=== PATIENT | male | born 1960 | race Caucasian/White ===

== ENCOUNTER 2018-07-19 07:12 | Day surgery (SDC) | payer BC, SELFPAY ==
--- NOTE | 2018-07-17 10:05 | NUR.NOTE ---
Nursing Note: 07/16/18 1033 - left msg regarding 07/19/18 Everly. 07/17/18 1004 - left msg regarding 07/19/18 Everly.
--- NOTE | 2018-07-18 15:36 | NUR.NOTE ---
07/18/18 1430 Spoke with Missael Florez CRNA in regards to medication, Nuedexta. Asked if pt should take medication or not prior to colonoscopy. Missael spoke with Torres De Los Santos CRNA and they both felt that it would be okay for pt to take medication. During telephone visit pt was instructed to take his morning dose of carbidopa/levodop and nuedexta. Nursing Note:
[2018-07-19 07:38] VITALS: BP 125/77; PULSE 86; RESP 16; TEMP 35.6; O2SAT 98
[2018-07-19] MEDS: Lactated Ringers 1,000 ML 80 ML IV (07:54)
--- NOTE | 2018-07-19 08:29 | BOWEL_PTH ---
PATIENT: Willie Farris LOC: [facility] U#:[id number] AGE/SX: 57/M ROOM: RE07/19/[address]: Carol Estes : 1960 BED: DIS: 07/19/2018 SPEC #: [id number] RECD: 07/19/18 12:37 STATUS: EBENEZER REQ #: [id number] NIKKI: 07/19/18 08:[address]: Carol Estes DEPT: Surgical Specimen RECD BY: [place] Barragan ENTERED: 07/19/18 12:38 SP TYPE: Bowel OTHR DR: Drew Gipson DO Tissues: 1 - BIOPSY BOWEL 2 - BIOPSY BOWEL Procedures: GROSS AND MICRO LEVEL 4 Comments: [id number]
--- NOTE | 2018-07-19 08:43 | W.COLOREPORT ---
Date of service: 07/19/18 Time of Service: 08:44 Colonoscopy Report Date of procedure: 07/19/18 Pre-op diagnosis general: CRC screen Post-op diagnosis procedure note: other Procedure: CE Surgeon: Carol Estes Anesthesia proc note operative: GETA Estimated blood loss (mL): 2 Pathology: other Complications: None Disposition: same day Indications: CRC screen Prep: Miralax Retraction Time: 12 mins Findings: see note Procedure Description: After informed consent was obtained the patient was taken to the procedure room and placed in a left decubitous position. Monitors were applied and a time out was done. The patients name, date of , procedure, allergies to medications and metal in their body was reviewed. The patient was then sedated. Once sedated and comfortable a rectal exam was done. External exam was normal. Internal exam revealed a normal sphincter tone and no palpable masses. The prostate nl. The scope was then introduced and retrofelexed. one small and ext hemorrhoid noted- grade I. The scope was then advanced to the cecum. difficulty. The TI and appendices orifice were identified. The prep was good. The scope was then slowly retracted over 12 minutes back into the rectum. Polyps were removed at: 50cm with mult bites of cold biter and a small one in cecum. all specimen retrieved and no bleeding noted. The scope was removed and the patient was woken up and taken back to Same day surgery in stable condition. The patient tolerated the procedure well and there were no immediate complications. Follow up: The patient should follow up in 3-5 years unless they develop changes in bowel habits or other new gastrointestinal complaints.
--- NOTE | 2018-07-19 08:48 | W.PM.DSUDISC ---
Discharge Plan Disposition Patient Disposition: HOME Condition: Good Discharge Details Reason For Visit: CRC screen Attending Provider: Carol Estes Primary Care Provider: Drew Gipson Home Meds and New Rx's Prescriptions: Continued ccpdjcsau-xvorqmoa-gxidyxinzn 50-200-200 mg tablet 1 tab PO HS RF: 0 Symbicort 80-4.5 mcg/actuation HFA aerosol inhaler 2 puff IH BID PRNRF: 0 multivitamin tablet 1 tab PO DAILY RF: 0 cetirizine [Allergy Relief (cetirizine)] 10 mg tablet 5 mg PO DAILY PRNRF: 0 vitamin E mixed 400 unit capsule 400 unit PO DAILY RF: 0 carbidopa-levodopa 25-100 mg tablet 2 tab PO TID RF: 0 Nuedexta 20-10 mg capsule 1 cap PO Q12H RF: 0 albuterol sulfate 90 mcg/actuation HFA aerosol inhaler 2 puff IH Q4H PRN (Reason: asthma) Qty: 8.5 RF: 8 lansoprazole 30 mg capsule,delayed release(DR/EC) 30 mg PO .every other day Qty: 90 RF: 3 Discontinued bisacodyl [Dulcolax (bisacodyl)] 5 mg tablet,delayed release (DR/EC) 5 mg PO ONCE Qty: 4 RF: 0 polyethylene glycol 3350 17 gram/dose powder 238 g PO ONCE Qty: 238 RF: 0 Discharge Instructions Additional Instructions: Findings: x2 polyps removed Follow up: repeat in 3-5 yrs path pd. Will send a letter in 2-3 wks as to path report and when to repeat CE. Please call if you develop: fevers >101.5 Nausea or Vomiting Abdominal pain that is not transient DAY SURGERY UNIT POST COLONOSCOPY INSTRUCTIONS 1. Because there will be medication in your system for the next 24 hours, you may feel a little sleepy. Your coordination will be affected. Therefore: a. Do not drive or operate dangerous equipment for 24 hours. b. Do not drink alcohol beverages for 24 hours (not even beer). c. Plan to go home and rest for the day. 2. Generally there are no restrictions on your activity after a day or so has gone by, but you may feel a bit fatigued for a few days. 3 After you arrive home you may have a light meal and return to a normal diet as you can tolerate it without feeling sick to your stomach. 4. After surgery, you may feel pain or discomfort. This should be only transient, but if it persists please contact your doctor. 5. If there are any questions regarding the findings of your procedure, please feel free to contact your doctor. 6. If you are unable to contact your doctor with a problem, contact the hospital at [phone]. 7. Continue all your regular medications unless directed otherwise. I understand the above instructions and have no questions. Signature of Patient or Responsible Adult Escort Date/Time Name of Responsible Adult Escort Signature of Nurse Date/Time Activity:: no lifting over 10# or strenuous acitivty x24hrs. no asa/nsaids for 10 days. tylenol is fine Diet:: sm. lt. meal for 24 hrs. push fluids DS: Diagnosis Discharge Diagnosis (1) Colon polyps: Status: Acute
[2018-07-19 09:15] VITALS: BP 117/80; PULSE 71; RESP 16; TEMP 36.4; O2SAT 97
== END 2018-07-19 09:40 | disposition home or self-care (01) ==
PROVIDERS: PCP Emergency Medicine; Visit Provider Surgery
PROC: 0DJD8ZZ Inspection of Lower Intestinal Tract, Via Natural or Artificial Opening Endoscopic (ICD-10-PCS; CPT 45378; principal; 2018-07-19 08:30)
DX: Z12.11 Encounter for screening for malignant neoplasm of colon (principal); D12.0 Benign neoplasm of cecum; D12.4 Benign neoplasm of descending colon; K21.9 Gastro-esophageal reflux disease without esophagitis
CPT/HCPCS: 45380; 88305

== ENCOUNTER 2018-08-15 09:44 | Outpatient (CLI) | payer BC, SELFPAY ==
--- NOTE | 2018-08-15 09:21 | DI.RAD_ITS ---
SYMPTOM/DIAGNOSIS: RT SHOULDER PAIN RIGHT SHOULDER: Two views were obtained. There is anterior and inferior spurring of the glenoid and the cartilaginous joint space of the glenohumeral joint appears fairly well maintained. Moderate hypertrophic spurring of the AC joint noted. No other significant bony or soft tissue abnormality is seen. CONCLUSION: Degenerative changes as described above.
== END 2018-08-15 10:04 ==
PROVIDERS: PCP Emergency Medicine; Visit Provider Physician Assistant
DX: M25.511 Pain in right shoulder (principal); M19.011 Primary osteoarthritis, right shoulder
CPT/HCPCS: 73030

== ENCOUNTER 2019-03-20 19:27 | Emergency (ER) | payer BC, SELFPAY ==
[2019-03-20 19:30] VITALS: BP 137/89; PULSE 76; RESP 18; TEMP 36.4; O2SAT 98
--- NOTE | 2019-03-20 19:52 | ED.GENADUL_ITS ---
Discharge Plan Disposition Patient Disposition: HOME Discharge Details Chief Complaint: Orthopedic Clinical Impression: Right shoulder strain Primary Care Provider: Drew Gipson ED Provider: Nick Alcocer Home Meds and New Rx's Prescriptions: No Action vntlhcxdt-gcxbehog-yocasycdbq 50-200-200 mg tablet 1 tab PO HS RF: 0 multivitamin tablet 1 tab PO DAILY RF: 0 cetirizine [Allergy Relief (cetirizine)] 10 mg tablet 5 mg PO DAILY PRNRF: 0 vitamin E mixed 400 unit capsule 400 unit PO DAILY RF: 0 carbidopa-levodopa 25-100 mg tablet 2 tab PO QID RF: 0 Nuedexta 20-10 mg capsule 1 cap PO Q12H RF: 0 albuterol sulfate 90 mcg/actuation HFA aerosol inhaler 2 puff IH Q4H PRN (Reason: asthma) Qty: 8.5 RF: 8 lansoprazole 30 mg capsule,delayed release(DR/EC) 30 mg PO .every other day Qty: 90 RF: 3 Discharge Instructions Instructions: Rotator Cuff Injury (ED) Additional Instructions: Your x-rays were negative for an acute fracture of your shoulder and/or elbow. It is possible that you may have injured her rotator cuff. Plan is to place you in a simple sling for the next 24 to 48 hours. Should your pain significantly increase or you develop numbness and tingling in the hand despite sling removal he should return to the emergency department immediately. Take Tylenol 500 m tabs every 8 hours for pain. You may also take ibuprofen 200 m tabs every 8 hours for pain. Stand Alone Forms: Work Release Referrals: Archie Hernández MD [ [facility] STAFF PHYSICIAN] - 3 days Medical Decision Making This is a nontoxic-appearing 58-year-old male who presents to the emergency department status post fall injuring his right shoulder. Physical exam is significant for posterior lateral shoulder tenderness. Neurovascularly intact. Vital signs stable. X-rays negative for acute fracture of both the shoulder and the elbow. ?RTC pathology. Plan is to place him in a simple sling for the next 24 to 48 hours and have him follow-up with Ortho should his symptoms persist. Tylenol and Motrin indicated for pain. HPI General Date/Time Provider Initiated Documentation: 03/20/19 19:40 . HPI Narrative: Jenna rodriguez is a 58-year-old male with a significant history for Parkinson's disease and bilateral shoulder arthroscopy who presents to the emergency department status post fall in which she slipped on the ice at home. He axially loaded his right shoulder with his elbow sustaining the majority of the trauma. He complains of severe pain in the posterior lateral aspect of his right humerus. He denies any numbness or tingling of the hand. He does also report some tenderness of the elbow. No head or neck trauma. No trouble breathing or chest pain. Related Data Home Medications Medication Instructions Recorded Confirmed carbidopa 50 mg-levodopa 200 1 tab PO HS tab 12/12/17 03/20/19 mg-entacapone 200 mg tablet cetirizine 10 mg tablet 5 mg PO DAILY PRN 12/12/17 03/20/19 multivitamin 1 tab PO DAILY 12/12/17 03/20/19 vitamin E mixed 400 unit capsule 400 unit PO DAILY cap 12/12/17 03/20/19 lansoprazole 30 mg capsule,delayed 30 mg PO .every other day #90 cap 05/29/18 03/20/19 release albuterol sulfate 90 mcg/actuation 2 puff IH Q4H PRN #8.5 gm 06/12/18 03/20/19 aerosol inhaler carbidopa 25 mg-levodopa 100 mg 2 tab PO QID tab 06/12/18 03/20/19 tablet dextromethorphan 20 mg-quinidine 1 cap PO Q12H 06/12/18 03/20/19 10 mg capsule Previous Rx's Medication Instructions Recorded lansoprazole 30 mg capsule,delayed 30 mg PO .every other day #90 cap 05/29/18 release albuterol sulfate 90 mcg/actuation 2 puff IH Q4H PRN #8.5 gm 06/12/18 aerosol inhaler Allergies Allergy/AdvReac Type Severity Reaction Status Date / Time bee pollen Allergy Severe ANAPHYLAXIS Verified 03/20/19 19:37 General Stated Complaint: Orthopedic RICHELLE: 3 Review of Systems Constitutional Constitutional: Denies headache(s) ENT Ears, Nose, Mouth, and Throat: Denies headache(s) and Denies neck pain Cardiovascular Cardiovascular: Denies syncope, Denies claudication, Denies palpitations and Denies dyspnea Respiratory Respiratory: Denies dyspnea Gastrointestinal Gastrointestinal: Denies nausea and Denies vomiting Musculoskeletal Musculoskeletal: Denies back pain, Denies neck pain, Denies numbness and Denies tingling Integumentary/Breasts Skin/Breast: Denies wounds Neurologic Neurologic: Denies syncope, Denies headache(s), Denies numbness and Denies tingling Endocrine Endocrine: Denies palpitations Hematologic/Lymphatic Hematologic/Lymphatic: Denies easy bleeding and Denies easy bruising [facility] Medical History Adenomatous colon polyp (Resolved) 07/19/18, Dr Estes, [facility], tubular and sessile serrated adenoma, repeat 3 years. Asthma (Chronic) Fx ankle (Acute) 1984 orif done GERD (gastroesophageal reflux disease) (Chronic) Hiatal hernia (Chronic) History of Parkinson's disease (Acute) Microhematuria (Acute) Right tennis elbow (Acute) Rupture of biceps tendon (Acute) 2008 repair done Surgical History Arthroscopy, Shoulder 1992; left also right EGD - MAC 2004 Repair of umbilical hernia 1993 Family History Mother No problems noted. Father Personal history of malignant neoplasm Social History Smoking/Tobacco Use Status: Never Alcohol Intake: current Alcohol Intake frequency: a few times a week Alcohol type: beer Drug use: Never Substance use type: does not use Do you feel safe at home: Yes Do you feel safe in your relationship?: Yes Exam Const General: cooperative, healthy appearing and in distress Orientation: alert, awake and oriented x3 HENMT Head: normal to inspection, no palpable skull fracture, normocephalic and a traumatic Eyes General: appearance normal, both eyes and all related structures Pupils: PERRL EOM: EOM intact bilaterally Neck Neck: normal visual inspection, full ROM, no anterior neck swelling, no midline deformity and nontender Chest Chest: normal inspection of the chest and normal palpation of entire chest wall Resp Effort & Inspection: normal respiratory effort and able to speak in complete sentences Auscultation: clear to auscultation bilaterally Cardio Rate: regular rate Rhythm: regular rhythm Pulses: radial pulses present and normal peripheral pulses GI Inspection: normal to inspection Palpation: soft Back/Spine/Pelvis Cervical Spine: No cervical muscular tenderness and No cervical spinal tenderness Skin Trauma: no lacerations or abrasions Neuro Motor: muscle tone normal throughout Sensory Exam: no sensory deficits noted Extrem Left upper extremity: shoulder/upper arm Details: tenderness Location: of the proximal humerus, axillary nerve sensory function normal and abnormal ROM Details: held in an abnormal fashion Details: in ADduction and elbow/forearm Details: normal to inspection and tenderness Location: of the distal humerus and of the proximal forearm Course Vital Signs Vital signs: Vital Signs Temperature 36.4 C L 03/20/19 19:30 Pulse 76 03/20/19 19:30 Respiratory Rate 18 03/20/19 19:30 Blood Pressure 137/89 03/20/19 19:30 Pulse Oximetry 98 03/20/19 19:30 Temperature 36.4 C L 03/20/19 19:30 Temperature Source Skin 03/20/19 19:30 Pulse 76 03/20/19 19:30 Respiratory Rate 18 03/20/19 19:30 Blood Pressure 137/89 03/20/19 19:30 Pulse Oximetry 98 03/20/19 19:30 Oxygen Delivery Method Room Air 03/20/19 19:30 Oxygen Flow Rate 0 03/20/19 19:30 Pain Level 10 03/20/19 19:30 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
[2019-03-20] MEDS: Ondansetron 4 MG/2 ML VIAL (19:53)
[2019-03-20] MEDS: HYDROmorphone 2 MG/ML VIAL 1 MG IVP (19:54)
--- NOTE | 2019-03-20 20:46 | DI.RAD_ITS ---
EXAM: XR SHOULDER RT COMPLETE 2+V INDICATION: severe posterior shoulder pain s/p fall. COMPARISON: XR shoulder RT complete 2+V from 08/15/2018 TECHNIQUE: 2D digital imaging was performed. FINDINGS: No acute fracture or dislocation is present. Moderate degenerative changes are seen at the acromiocl avicular joint. On the frontal view there is a tiny density superior to the head of the humerus. Th is likely reflects calcific tendinitis. It appears well circumscribed. The soft tissues are unremar kable. IMPRESSION: No acute fracture or dislocation.
--- NOTE | 2019-03-20 20:46 | DI.RAD_ITS ---
EXAM: XR ELBOW RT COMPLETE INDICATION: elbow pain s/p blunt trauma. COMPARISON: No exams were available for comparison TECHNIQUE: 2D digital imaging was performed. FINDINGS: On the lateral view there is a density adjacent to the olecranon. There is a lucency at the base of this density. This may represent a fracture through an osteophyte. This is age indeterminate. Tiny well corticated osseous densities are seen adjacent to the lateral epicondyle. These appear old. T he bones are normally mineralized. The soft tissues are unremarkable. IMPRESSION: Lucency through density adjacent to the olecranon as seen on the lateral view. This may represent a fracture through an osteophyte. This is age indeterminate. Please correlate with the patient's site of pain.
--- NOTE | 2019-03-20 20:57 | DI.VRAD_ITS ---
PROCEDURE INFORMATION: Exam: XR Right Elbow Exam date and time: 03/20/2019 8:43 PM Age: 58 years old Clinical history: Injury or trauma; Fall; Initial encounter; Blunt trauma (contusions or hematomas; Elbow; Injury date: 03/20/2019; Injury details: Fell in parking lot on ice, unable to abduct right arm TECHNIQUE: Imaging protocol: XR Right elbow. Views: 3 or more views. COMPARISON: No relevant prior studies available. FINDINGS: Bones/joints: Ossified fragment along the posterior aspect the olecranon. Joint spaces are maintained. No joint effusion. Soft tissues: Normal. IMPRESSION: 1. Ossified fragment along the posterior aspect of the olecranon may represent an age indeterminate fracture through an osteophyte. Recommend clinical correlation. 2. Joint spaces are maintained. Dictated and Authenticated by: Mauro Gonzalez MD. Ordering:MARLO Romero MD
--- NOTE | 2019-03-20 20:58 | DI.VRAD_ITS ---
PROCEDURE INFORMATION: Exam: XR Right Shoulder Exam date and time: 03/20/2019 8:44 PM Age: 58 years old Clinical history: Injury or trauma; Fall; Initial encounter; Blunt trauma (contusions or hematomas; Shoulder; Injury date: 03/20/2019; Injury details: Fell in parking lot on ice, unable to abduct right arm TECHNIQUE: Imaging protocol: XR Right shoulder. Views: 2 or more views. COMPARISON: CR XR shoulder RT complete 2+V 08/15/2018 9:36 AM FINDINGS: Bones/joints: No acute fracture. Joint spaces are maintained. Moderate degenerative changes of the acromioclavicular joint. Small ossification superior to the humeral head likely secondary to enthesopathy. Soft tissues: Normal. Partially visualized right lung is unremarkable. IMPRESSION: No acute findings. Dictated and Authenticated by: Mauro Gonzalez MD. Ordering:MARLO Romero MD
[2019-03-20] MEDS: HYDROmorphone 2 MG/ML VIAL 0.5 MG IVP (21:04)
[2019-03-20 21:09] VITALS: BP 119/62; PULSE 74; RESP 18; TEMP 36.8; O2SAT 99
== END 2019-03-20 21:20 | disposition home or self-care (01) ==
PROVIDERS: Emergency Provider Physician Assistant; PCP Emergency Medicine
DX: S46.911A Strain of unspecified muscle, fascia and tendon at shoulder and upper arm level, right arm, initial encounter (principal); W00.0XXA Fall on same level due to ice and snow, initial encounter; G20 Parkinson's disease
CPT/HCPCS: 96374; 96375; 96376; 99284; 73030; 73080; 99283; J2405; L3650

== ENCOUNTER 2019-04-04 00:27 | Outpatient (CLI) | payer BC, SELFPAY ==
[2019-04-04 10:09] LABS: Calculated LDL 122 mg/dL; Cholesterol 194 mg/dL (<200); HDL Cholesterol 55 mg/dL (40-60); Triglyceride 88 mg/dL (<150)
== END 2019-04-04 00:47 ==
PROVIDERS: PCP Emergency Medicine; Visit Provider Emergency Medicine
DX: Z00.00 Encounter for general adult medical examination without abnormal findings (principal); Z13.220 Encounter for screening for lipoid disorders
CPT/HCPCS: 36415; 80061

== ENCOUNTER 2019-04-04 03:15 | Outpatient (CLI) | payer BC, SELFPAY ==
--- NOTE | 2019-04-04 08:40 | DI.MRI_ITS ---
EXAM: MR UPPER JOINT RT WO CLINICAL HISTORY: R shoulder injury S46.011A STRAIN OF MUSCLE. TECHNIQUE: Multiplanar multisequence MRI was performed. COMPARISON: XR SHOULDER RT COMPLETE 2+V from 03/20/2019 FINDINGS: MR examination shoulder was performed according to the usual protocol. There is a moderate shoulder joint effusion. There are very prominent hypertrophic changes of the ac romioclavicular joint with impingement on the supraspinatus mechanism. There are mild cystic degener ative changes of the humeral head at the greater tuberosity. There is effacement of the glenoid labr um. Biceps tendon sheath contains fluid. Biceps tendon is normally positioned and shows essentially normal signal. There is a full-thickness supraspinatus tendon tear with retraction up to 25 millimeters. Subscapula ris tendon shows partial thickness tear and marked tendinosis with tendon thickening and abnormal sig nal and there may be a full-thickness non retracted attachment tear of the subscapularis. Infraspina tus also shows partial-thickness tearing on the undersurface with thickening and question of Tresa att achment full-thickness tear, non retracted. IMPRESSION: Massive rotator cuff tear involving supraspinatus tendon and adjacent portions of infraspinatus and s ubscapularis with retraction by supraspinatus component by about 2.5 cm. On sagittal imaging the wid th of the tear measures up to about 4 cm. Degenerative changes noted as described above. No significant fatty replacement of rotator cuff musculature.
== END 2019-04-04 03:35 ==
PROVIDERS: PCP Emergency Medicine; Visit Provider Orthopaedic Surgery
DX: M25.411 Effusion, right shoulder (principal); S46.011A Strain of muscle(s) and tendon(s) of the rotator cuff of right shoulder, initial encounter; M19.011 Primary osteoarthritis, right shoulder
CPT/HCPCS: 73221

== ENCOUNTER 2019-04-21 09:34 | Observation (INO) | payer BC, SELFPAY ==
--- NOTE | 2019-04-18 09:46 | DSU.FORM ---
04/18/19 0947 Spoke with Emily at [facility] to let them know that Willie will need an H&P on Sunday prior to surgery.
--- NOTE | 2019-04-18 14:57 | W.PREOPHP ---
Date of service: 04/21/19 Assessment and Plan Assessment and plan (1) Traumatic tear of right rotator cuff: Status: Acute Assessment and plan: Plan: Educated patient on surgery covering surgical technique, recovery process, benefits and risks including but not limited to risk of infection, blood clot, damage to soft tissue/blood vessels/nerves in detail. After discussion patient gives verbal understanding of risks and elects to proceed with scheduling surgery. Patient had opportunity to have questions answered to their satisfaction. They will contact office if issues arise. Patient will continue to be scheduled for right rotator cuff repair with Dr. Hernández. Qualifiers: Encounter type: initial encounter Rotator cuff tear extent: complete Qualified Code(s): S46.011A - Strain of muscle(s) and tendon(s) of the rotator cuff of right shoulder, initial encounter (2) Right rotator cuff tendonitis: Status: Chronic History of Present Illness Narrative: Mr. Farris is a 58-year-old right-hand dominant male who presents for right rotator cuff repair with Dr. Hernández. He was initially seen in the [facility] ER on 03/20/19 after a traumatic fall on the ice in his friend's driveway where he land directly on his flexed elbow causing him to have immediate right shoulder discomfort. After his shoulder and elbow x-rays were negative for acute bony abnormality he was referred to orthopedic clinic. Patient received a subacromial injection on 03/25/19 which provided minimal relief for ~1 day since that time he has continued to have significant right shoulder discomfort as well as restricted ROM. Due to his motion and history of trauma an MRI was ordered which revealed massive rotator cuff tear involving the supraspinatus tendon with retraction as well as adjacent portions of infraspinatus and subscapularis as per Dr. Montague's read. Patient had previously had chronic rotator cuff tendonitis and received subacromial injections with the last injection for his chronic symptoms on 08/15/18 which provided some relief. Due to the recent traumatic history, continued pain, restricted motion and positive MRI Dr. Hernández offered surgery and patient elected to proceed. Pertinent Surgical Information Patient does have history of Parkinson's disease. Reports history of asthma but denies any recent issues or needing his inhaler. Denies past medical history of: Hypertension, stroke, cardiac issues, angina, COPD, sleep apnea, renal issues, liver issues, hepatitis, gastrointestinal ulcers, hyperlipidemia, bleeding disorders, seizures, migraines, diabetes, autoimmune disorders, thyroid issues Denies prior complications from surgery. He does report taking a long time to come out of anesthesia in the past. Denies any true issues with anesthesia. Review of Systems Cardiovascular Cardiovascular: Denies chest pain, Denies rapid heart rate, Denies irregular heart rhythm, Denies dyspnea, Denies dyspnea on exertion and Denies slow heart rate Respiratory Respiratory: Reports cough (dery cough for several months; non-productive), Denies dyspnea, Denies dyspnea on exertion and Denies wheezing Gastrointestinal Gastrointestinal: Denies abdominal pain, Denies melena, Denies hematochezia, Denies constipation, Denies diarrhea, Denies nausea and Denies vomiting Musculoskeletal Musculoskeletal: Reports as per HPI, Denies numbness and Denies tingling Neurologic Neurologic: Denies numbness and Denies tingling Allergic/Immunologic Allergic/Immunologic: Denies wheezing [facility] Medical History Adenomatous colon polyp (Resolved) 07/19/18, Dr Estes, [facility], tubular and sessile serrated adenoma, repeat 3 years. Asthma (Chronic) Family history of cardiovascular disease (Inactive) GERD (gastroesophageal reflux disease) (Chronic) Hiatal hernia (Chronic) History of Parkinson's disease (Acute) Microhematuria (Acute) Right tennis elbow (Acute) Surgical History (Updated 04/21/19 @ 07:12 by Carol Rivera) Arthroscopy, Shoulder 1992; left also right EGD - MAC 2004 Fx ankle (Acute) 1984 orif done History of colonoscopy (Chronic) Repair of umbilical hernia 1993 Rupture of biceps tendon (Acute) 2007 repair done Social History Smoking/Tobacco Use Status: Never Alcohol Intake: current Alcohol Intake frequency: a few times a week Alcohol type: beer Drug use: Never Substance use type: does not use Do you feel safe at home: Yes Do you feel safe in your relationship?: Yes Meds Home Medications and Allergies Home Medications Medication Instructions Recorded Confirmed Type carbidopa 50 mg-levodopa 200 1 tab PO HS tab 12/12/17 04/21/19 History mg-entacapone 200 mg tablet cetirizine 10 mg tablet 5 mg PO DAILY PRN 12/12/17 04/21/19 History multivitamin 1 tab PO DAILY 12/12/17 04/21/19 History vitamin E mixed 400 unit capsule 400 unit PO DAILY cap 12/12/17 04/21/19 History lansoprazole 30 mg capsule,delayed 30 mg PO .every other day #90 cap 05/29/18 04/21/19 Rx release albuterol sulfate 90 mcg/actuation 2 puff IH Q4H PRN #8.5 gm 06/12/18 04/21/19 Rx aerosol inhaler carbidopa 25 mg-levodopa 100 mg 2 tab PO QID tab 06/12/18 04/21/19 History tablet dextromethorphan 20 mg-quinidine 1 cap PO Q12H 06/12/18 04/21/19 History 10 mg capsule Allergies Allergy/AdvReac Type Severity Reaction Status Date / Time bee pollen Allergy Severe ANAPHYLAXIS Verified 04/21/19 07:12 Exam Const General: cooperative and no acute distress HENMT Head: normal to inspection, normocephalic and atraumatic Ears: external ears normal General nose exam: external nose normal and no nasal discharge Face and sinus: face symmetric Mouth: oral mucosae normal, lip normal, tongue normal and moist mucous membranes Teeth and gingiva: dentures Eyes General: appearance normal, both eyes and all related structures Neck Neck: trachea midline Lymphatic: no lymphadenopathy noted Resp Effort & Inspection: normal respiratory effort and able to speak in complete sentences Auscultation: clear to auscultation bilaterally, no rales, no rhonchi and no wheezes Cardio Heart Sounds: S1 normal, S2 normal and no murmurs Pulses: radial pulses present bilaterally Skin General skin exam: no rashes or lesions noted
[2019-04-21] VITALS (13 sets, daily range): BP systolic 87–135; BP diastolic 54–81; PULSE 72–86; RESP 14–19; TEMP 36.2–37.4; O2SAT 92–96
[2019-04-21] MEDS: Lactated Ringers 1,000 ML 80 ML IV ×2 (06:49→12:41)
[2019-04-21] MEDS: Bupivacaine 0.5% Pres-Free 30 ML VIAL (07:26)
[2019-04-21] MEDS: Bupivacaine LIPOSOME/PF 133 MG/10 ML VIAL IJ (07:26)
[2019-04-21] MEDS: ceFAZolin 2 GM/50 ML BAG IVPB ×3 (07:40→19:42)
[2019-04-21] MEDS: Tranexamic Acid 1,000 MG/10 ML VIAL 1000 MG (09:21)
[2019-04-21] MEDS: Normal Saline 100 ML (09:21)
[2019-04-21] MEDS: Carbidopa 25/Levodopa 100 TAB PO ×3 (10:44→17:38)
[2019-04-21] MEDS: Normal Saline Flush 10 ML SYR IV (13:06)
--- NOTE | 2019-04-21 13:21 | NUR.NOTE ---
Nursing Note: Patient transferred to floor from PACU at approximately 1145. Patient arrives on stretcher. Reports tingling to right hand. Patient had general anesthesia and a right interscalene nerve block. Positive pedal and radial pulses. HR regular, lungs clear, hypoactive bowel sounds. VSS. See worklist. Cryo cuff to right shoulder. Patient reports feeling cold -blankets given. Alert and oriented x 3. Sling and bolster block in place. IV running on left hand.
[2019-04-21] MEDS: Ketorolac 30 MG/ML VIAL IVP ×2 (13:34→19:41)
[2019-04-21] MEDS: POTASSIUM CHLORIDE/0.9% NACL 1,000 ML 125 MEQ IV ×2 (13:40→22:10)
--- NOTE | 2019-04-21 15:28 | ROE_ITS ---
DATE OF PROCEDURE: April 21, 2019 PREOPERATIVE DIAGNOSIS: Torn rotator cuff, right. POSTOPERATIVE DIAGNOSIS: Same. PROCEDURE: Open repair of torn rotator cuff on the right. ANESTHESIA: General, Kendrick Romero CRNA SURGEON: Archie Hernández M.D. INSPECTOR STRUCTURAL BONDING: Purnima Flores INDICATIONS: This is a 58-year-old white male who had a slip and fall onto his right elbow several w eeks ago. He experienced severe right shoulder pain and dysfunction. Clinical examination was highl y suggestive of a large full-thickness rotator cuff tear. MRI scan was obtained, which confirmed a l arge full-thickness rotator cuff tear with retraction of the leading edge of the tear several centime ters. Repair of the rotator cuff tear was recommended as optimum treatment to alleviate his pain and restore useful function to the right upper extremity. The risks and complications of the procedure were explained to the patient in detail preoperatively. PROCEDURE: The patient was taken to the operating room on 04/21/2019. A scalene block was administer ed and then the patient was given a general anesthetic. He was placed in the carolina chair position a nd the right shoulder was prepped and draped free in the usual sterile fashion. An incision was made in line with previous scar from a distal clavicle resection and acromioplasty. The incision was extended to about 3 to 4 cm distal to the anterolateral corner of the acromion. The incision was carried down to the fascia. The deltoid muscle was split in line with its fibers at th e anterolateral corner of the acromion and then the anterior deltoid muscle was sharply reflected fro m the acromion. Sutures of #2 FiberWire from a previous deltoid reattachment were excised. A partia l acromioplasty was performed to improve visualization. The deltoid was reflected off the anterior a cromion to the clavicle. The patient had a full-thickness tear of the rotator cuff beginning at the rotator interval over the biceps tendon. The biceps tendon was inspected and was found to be surprisingly intact. Traction garcia tures were placed on the leading edge of the rotator cuff tear and the tear was mobilized using العلي elevators on both the bursal side and the articular side of the rotator cuff. The footprint was prep ared on the humeral head with a rongeur and a nasal rasp. The length of tear was fairly substantial and was probably 4 cm. The posterior cuff, however, was intact. There was a stump of tissue bridge ironworker helper d to the tuberosity, so the tear was intratendinous and not pulled off the attachment of the cuff. T hree 5.0 anchors were then placed from anterior to posterior; the first one being just posterior to t he biceps tendon and bicipital groove. The next two were evenly spaced to the very posterior lateral corner of the tear. The nonviable tissue from both tendon ends was sharply debrided. I converged t he split in the rotator interval with a few interrupted zxsjee-sp-agtba sutures of #1 Vicryl suture m aterial. The sutures from the three anchors were then placed, first with one suture in a horizontal mattress fashion and the second suture in a simple fashion over the horizontal mattress portion and l aterally one suture was placed through the stump of the tendon to be tied over top. I repeated this with the next two anchors as well. I tied the horizontal mattress suture first and then put the simp le suture overlying the horizontal mattress part. Excellent convergence of the tear edges was approx imated and the tendon was anatomically repaired. I then used a single VERSALOK anchor to bring two o f the sutures over where there was some additional tearing of the tendon. I also supplemented with a few interrupted snpbdd-bg-txyvu sutures of #1 Vicryl suture material for a watertight closure. The wound was irrigated with saline solution and then 1 gram of tranexamic acid in 100 cc's of saline was instilled into the wound and allowed to sit for sixty seconds. All obvious bleeders were cauter ized. The wound margins were infiltrated with 0.25% Marcaine with an epinephrine solution. Three dr ill holes were placed in the anterior acromion and then #2 FiberWire was passed through the full-thic kness of the anterior deltoid muscle and through the drill holes in a zofggg-ls-hldxw fashion; they w ere tied tightly, securing the anterior deltoid to the acromion. The lateral deltoid split was repai red with interrupted pylsbb-zk-zryyg sutures of #1 Vicryl suture material. The AC joint capsule was approximated with interrupted bhcpfy-wm-ietdc sutures of #1 Vicryl suture material. Then the superfi cial fascia over the acromion was sutured to the superficial fascia of the deltoid with a few interru pted #1 Vicryl sutures. The subcu was approximated with a few interrupted #2-0 Vicryl sutures in a r unning subcuticular closure, supplemented with #4-0 Vicryl. Supplemental Steri-Strips were used for skin closure. The wounds were dressed with Xeroform gauze, sterile gauze 4x4's, and an ABD pad, and taped with foam elastic tape. The right upper extremity was placed in an UltraSling abduction pillow orthosis. The patient tolerated the procedure well. Estimated blood loss 50 cc's. The patient was discharged to recovery in good condition. After discussion with the patient in the recovery room, I decided to admit him OBV outpatient for fidel n control overnight.
[2019-04-21] MEDS: Docusate Sodium 100 MG CAP PO (19:42)
[2019-04-21] MEDS: oxyCODONE-CR 10 MG TABCR PO (23:27)
[2019-04-22] MEDS: Ketorolac 30 MG/ML VIAL IVP ×3 (01:29→13:31)
[2019-04-22] MEDS: ceFAZolin 2 GM/50 ML BAG IVPB ×2 (01:30→08:00)
[2019-04-22 04:32] VITALS: BP 108/62; PULSE 71; RESP 16; TEMP 37.1; O2SAT 93
[2019-04-22] MEDS: Carbidopa 25/Levodopa 100 TAB PO ×3 (05:04→13:31)
[2019-04-22] MEDS: HYDROcodone 5/Acetaminophen 325 TAB PO ×3 (05:09→15:37)
[2019-04-22] MEDS: POTASSIUM CHLORIDE/0.9% NACL 1,000 ML 125 MEQ IV (06:22)
[2019-04-22 07:40] VITALS: BP 126/78; PULSE 71; RESP 20; TEMP 36.8; O2SAT 96
[2019-04-22] MEDS: Normal Saline Flush 10 ML SYR IV (08:00)
[2019-04-22] MEDS: Multivitamin TAB 1 TAB PO (08:00)
[2019-04-22] MEDS: Docusate Sodium 100 MG CAP PO (08:01)
[2019-04-22] MEDS: Pantoprazole 40 MG TABCR PO (08:01)
--- NOTE | 2019-04-22 11:15 | PDOC.CMIN ---
- If Service Date Differs Date of service: 04/22/19 Time of Service: 11:15 Care Management Initial Assess REASON FOR HOSPITALIZATION:: Postop rotator cuff repair. PAST MEDICAL HISTORY/PAST SURGICAL HISTORY:: Medical History: Adenomatous colon polyp (Resolved) - 07/19/18, Dr Estes, [facility], tubular and sessile serrated adenoma, repeat 3 years, Asthma (Chronic), Family history of cardiovascular disease (Inactive), GERD (gastroesophageal reflux disease) (Chronic), Hiatal hernia (Chronic),. History of Parkinson's disease (Acute), Microhematuria (Acute), and Right tennis elbow (Acute). Surgical History: Arthroscopy, Shoulder - 1992; left also right, EGD - MAC 2004, Fx ankle (Acute) - 1984 orif done, History of colonoscopy (Chronic),. Repair of umbilical hernia - 1993, and Rupture of biceps tendon (Acute) - 2007 repair done. PREVIOUS FUNCTIONAL STATUS/SOCIAL/FAMILY SUPPORTS:: Willie lives in [place] with Araceli. The couple has two children together. 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 In his down time, Wlilie enjoys showshoeing, hunting, and visiting extended family. Willie drives and is independent with his ADLs at baseline. CURRENT FUNCTIONAL STATUS:: Willie is sitting in a chair when CM comes to meet with him. He is pleasant and easily engages in conversation. He shares that approximately two years ago, he was diagnosed with Parkinsons and is being followed by [facility]. He also shares that both his and daughter work for [employer]. He hopes to be returning home today. CM will continue to follow. ADVANCE DIRECTIVES:: None on file; a form is given to patient to complete at a later time, at his request. Has patient been provided with information about the portal?: Yes Did the patient sign up for the portal?: Yes CODE STATUS:: Full Code INSURANCE COVERAGE / FINANCIAL ISSUES:: BS CURRENT HOME/COMMUNITY SERVICES/EQUIPMENT:: Willie has no home or community services and does not have any medical equipment. PRIMARY CARE PHYSICIAN:: Drew Gipson MD ([facility]) POTENTIAL DISCHARGE NEEDS:: Follow-up appointment with primary care physician and with Dr. Hernández, surgeon. PATIENT/FAMILY EDUCATION NEEDS:: Discharge plan, limitations, follow-up plan of care, including Ask Me Three and self-management. ANTICIPATED BARRIERS TO DISCHARGE:: No anticipated barriers at this time. TRANSPORTATION:: Via private vehicle by family member. PLAN:: Willie will be discharged home when medically cleared by provider. Anticipate no new services at time of discharge. Willie's will transport him home via private vehicle when ready. CM will continue to follow.
[2019-04-22 11:40] VITALS: BP 124/74; PULSE 76; RESP 18; TEMP 36.7; O2SAT 94
[2019-04-22] MEDS: oxyCODONE-CR 10 MG TABCR PO (12:18)
--- NOTE | 2019-04-22 12:34 | W.NUTCONSULT ---
Date of service: 04/22/19 Time of Service: 12:35 Nutritional Consult ASSESSMENT: 58 year old male admitted for right rotator cuff surgery. PMH: parkinson dx, GERD. Following regular diet with excellent intake. BMI indicates overweight status. Not considered at nutritional risk at this time. MONITORING AND EVALUATION: po intake and weight trends Time Spent in Nutritional Counseling and Treatment: 0 time spent face to face
--- NOTE | 2019-04-22 14:01 | W.PM.DS.N ---
Date of service: 04/22/19 Time of Service: 14:01 DS: Diagnosis Discharge Diagnosis (1) Traumatic tear of right rotator cuff: Status: Acute (2) Right rotator cuff tendonitis: Status: Chronic Discharge Plan Disposition Patient Disposition: HOME Condition: Good Discharge Details Reason For Visit: POSTOP R ROTATOR CUFF REPAIR Admit Date/Time: 04/21/19 09:34 Admit Provider: Archie Hernández Attending Provider: Archie Hernández Primary Care Provider: Drew Gipson Hospital Course Hospital Course: Patient was taken to the operating room on day of admission on 04/21/2019. He was admitted OBV outpatient for pain control following the surgery. He did experience significant increase in pain in his right shoulder after his block wore off. His pain came back under control by the time I saw him at 1 PM. He felt his pain was controlled with the oxycodone pills. He felt the pain was manageable for him to go home. He was afebrile vital signs are stable. Neurovascular examination is right hand is completely normal. I thought he had met the discharge criteria and discharge him home. Home Meds and New Rx's Prescriptions: New hydrocodone-acetaminophen 5-325 mg tablet 1 tab PO Q6H PRN (Reason: pain) Qty: 30 RF: 0 ibuprofen 800 mg tablet 800 mg PO TID Qty: 60 RF: 0 Continued akttqobrn-dsyqtoru-ockdnlltkw 50-200-200 mg tablet 1 tab PO HS RF: 0 multivitamin tablet 1 tab PO DAILY RF: 0 cetirizine [Allergy Relief (cetirizine)] 10 mg tablet 5 mg PO DAILY PRNRF: 0 vitamin E mixed 400 unit capsule 400 unit PO DAILY RF: 0 carbidopa-levodopa 25-100 mg tablet 2 tab PO QID RF: 0 Nuedexta 20-10 mg capsule 1 cap PO Q12H RF: 0 albuterol sulfate 90 mcg/actuation HFA aerosol inhaler 2 puff IH Q4H PRN (Reason: asthma) Qty: 8.5 RF: 8 lansoprazole 30 mg capsule,delayed release(DR/EC) 30 mg PO .every other day Qty: 90 RF: 3 Discharge Instructions Additional Instructions: Wear sling/pillow 30/10. May remove to shower and dress. When out of sling, keep R arm at side--don't reach away from body with R arm. When sitting in chair can take forearm out of sling and bend and straighten R elbow over side of pillow. May remove dressings, shower, and get incision wet in 48 hours. Leave incision uncovered when it is dry and sealed. Apply cryocuff to R shoulder 4 times/day for 1 hour each time. Sleep in a recliner or propped up on pillows in bed. Take ibuprofen 3 times/day as prescribed to decrease inflammation and pain. Take hydrocodone for breakthru pain, if needed. Follow up with in 2 weeks. Referrals: Archie Hernández MD [ [facility] STAFF PHYSICIAN] - (f/u in 2 weeks.) Activity:: Activity as Tolerated Equipment/Supplies:: sling/pillow Diet:: As Tolerated Discharge Orders Discharge Orders: Discharge Order (Routine); Ordered 04/22/19 Ordered By: Archie Hernández DS: Summary Status at Discharge Functional status at discharge: independent ambulation Overall status at discharge: patient is progressing back to baseline Mental Status: mental status grossly normal Speech and Movement: speech and movement normal Mood: congruent mood Affect: normal affect Exam Psych Mental Status: mental status grossly normal Speech and Movement: speech and movement normal Mood: congruent mood Affect: normal affect DS: Data Vitals/I&O Vitals and I&O: Vital Signs Temperature 36.7 C 04/22/19 11:40 Temperature Source Tympanic 04/22/19 11:40 Pulse 76 04/22/19 11:40 Pulse Rhythm Regular 04/22/19 09:51 Respiratory Rate 18 04/22/19 11:40 Respiratory Effort Non-Labored 04/22/19 09:51 Respiratory Depth Normal 04/22/19 09:51 Respiratory Pattern Normal 04/22/19 09:51 Blood Pressure 124/74 04/22/19 11:40 Pulse Oximetry 94 L 04/22/19 11:40 Respiratory End-tidal CO2 28 04/21/19 11:30 Oxygen Delivery Method Room Air 04/22/19 11:40 Oxygen Flow Rate 0 04/22/19 11:40 Pain Level 7 04/22/19 12:18 Intake & Output 04/21/19 04/22/19 04/22/19 23:59 11:59 23:59 Intake Total 1423.833 / 2173.833 1550 / 1550 Output Total 900 / 1025 Balance 523.833 / 3226.219 8357 / 1550 Intake: IV 1423.833 / 2613.446 0609 / 1060 Oral 490 / 490 Output: Urine 900 / 1025 Other: Urine Color Yellow Urine Appearance Sediment Urine Odor Normal Comment patient stood and used urinal voiding in BR independently Voiding Methods Urinal PFSH Medical History Adenomatous colon polyp (Resolved) 07/19/18, Dr Estes, [facility], tubular and sessile serrated adenoma, repeat 3 years. Asthma (Chronic) Family history of cardiovascular disease (Inactive) GERD (gastroesophageal reflux disease) (Chronic) Hiatal hernia (Chronic) History of Parkinson's disease (Acute) Microhematuria (Acute) Right tennis elbow (Acute) Surgical History (Updated 04/21/19 @ 07:12 by Carol Rivera) Arthroscopy, Shoulder 1992; left also right EGD - MAC 2004 Fx ankle (Acute) 1984 orif done History of colonoscopy (Chronic) Repair of umbilical hernia 1993 Rupture of biceps tendon (Acute) 2007 repair done Social History Smoking/Tobacco Use Status: Never Alcohol Intake: current Alcohol Intake frequency: a few times a week Alcohol type: beer Drug use: Never Substance use type: does not use Do you feel safe at home: Yes Do you feel safe in your relationship?: Yes
--- NOTE | 2019-04-22 14:45 | CHAPLAIN ---
Willie was sitting up in bed when I visited. He told me about his surgery, and the fall on the ice that led to his surgery. He is waiting to hear if he'll be discharged and then will call family members about visiting. Willie was very pleasant. I explained my role and offered support.
--- NOTE | 2019-04-22 15:13 | CMDISCH_ITS ---
- If Service Date Differs Date of service: 04/22/19 Time of Service: 15:13 LACE Index Scoring Tool - Questions: Length of Stay (in days): 1 Acuity (Admit via E.D.?): No E.D. Visits: 1 - Answers: Total Score: 2 Risk of Readmission: Low Risk Care Management Discharge Reason for Hospitalization: Postop rotator cuff repair. Discharge Plan: Willie is being discharged home with no new services. He will follow up with Dr. Hernández, his primary care physician, and plan of care as [facility]. His will transport him home via private vehicle. Patient/Family Education Needs: Nursing will review discharge instructions with Willie re medications and activity level. Willie is able to verbalize reason for hospitalization and how to manage care at home.
== END 2019-04-22 17:30 | disposition home or self-care (01) ==
LOC: MS 13:32 → SUR 17:22 → MS 17:22
PROVIDERS: Admitting Provider Orthopaedic Surgery; PCP Emergency Medicine; Visit Provider Orthopaedic Surgery
PROC: 0LM10ZZ Reattachment of Right Shoulder Tendon, Open Approach (ICD-10-PCS; CPT 23410; principal; 2019-04-21 07:30)
DX: S46.011A Strain of muscle(s) and tendon(s) of the rotator cuff of right shoulder, initial encounter (principal); W01.0XXA Fall on same level from slipping, tripping and stumbling without subsequent striking against object, initial encounter; G89.18 Other acute postprocedural pain; M75.81 Other shoulder lesions, right shoulder; K21.9 Gastro-esophageal reflux disease without esophagitis; G20 Parkinson's disease; J45.909 Unspecified asthma, uncomplicated
CPT/HCPCS: 23410; 76942; C1713; NC; G0378; J0690; J1100; J1885; J2250; J2370; J2405; J2704; L3670

== ENCOUNTER 2019-06-03 09:33 | Outpatient (CLI) | payer BC, SELFPAY ==
--- NOTE | 2019-06-03 09:15 | DI.RAD_ITS ---
EXAM: XR SHOULDER RT 1V CLINICAL HISTORY: check anchors R humerus TECHNIQUE: COMPARISON: XR SHOULDER RT COMPLETE 2+V from 03/20/2019 FINDINGS: Single view was obtained and shows 4 apparent suture anchors overlying the humeral head. Moderate hy pertrophic degenerative changes of AC joint and glenohumeral joint noted. IMPRESSION:
== END 2019-06-03 09:53 ==
PROVIDERS: PCP Emergency Medicine; Visit Provider Orthopaedic Surgery
DX: M19.011 Primary osteoarthritis, right shoulder (principal); M75.101 Unspecified rotator cuff tear or rupture of right shoulder, not specified as traumatic
CPT/HCPCS: 73020

== ENCOUNTER 2019-10-06 17:37 | Emergency (ER) | payer BC, SELFPAY ==
[2019-10-06] VITALS (23 sets, daily range): BP systolic 105–146; BP diastolic 59–89; PULSE 71–91; RESP 17–26; TEMP 36.6; O2SAT 92–99
--- NOTE | 2019-10-06 18:00 | DI.RAD_ITS ---
EXAM: XR PORTABLE CHEST AP CLINICAL HISTORY: Epigastric pain TECHNIQUE: 2D digital imaging was performed. COMPARISON: No exams were available for comparison FINDINGS: MEDIASTINUM: Normal. HEART: Normal. PULMONARY VASCULATURE: Normal. LUNGS: Clear. PLEURAL SPACE: No pleural effusion or pneumothorax. BONE:Normal. OTHER FINDINGS:Normal. IMPRESSION: No acute pulmonary findings. DATA REPOSITORY: RADIATION DOSE DELIVERED:
[2019-10-06] MEDS: Aspirin 81 MG CHEW 324 MG CH (18:16)
[2019-10-06 18:21] LABS: Abs Immature Grans 0.01 k/cumm (0.0-0.09); Absolute Basophil Count 0.03 k/cumm (0.0-0.2); Absolute Eosinophil Count 0.09 k/cumm (0.0-0.7); Absolute Lymphocyte Count 2.23 k/cumm (1.2-3.4); Absolute Monocyte Count 0.57 k/cumm (0.11-0.7); Absolute Neutrophil Count 5.75 k/cumm (1.2-6.7); Basophils % 0.3; HCT 41.6 % (40.0-50.0); HGB 15.2 g/dL (13.5-17.5); Immature Grans % 0.1 %; Lymphocytes % 25.7; Mean Corp. HGB Concentration 36.5 g/dL (32.0-36.0); Mean Corpuscular Hemoglobin 30.3 pg (27.0-33.0); Mean Corpuscular Volume 82.9 fL (80-95); Mean Platelet Volume 10.1 fL (8.0-11.0); Monocytes % 6.6; Neutrophils % 66.3; Platelet Count 277 x1000/uL (130-400); RBC 5.02 m/cumm (4.50-6.00); RBC Distribution Width 12.5 % (11.8-14.1); White Blood Cell Count 8.68 k/cumm (4.4-10.8)
[2019-10-06] MEDS: Pantoprazole 40 MG VIAL IVP (18:22)
[2019-10-06] MEDS: Normal Saline 1,000 ML 125 ML IV (18:25)
[2019-10-06 18:30] LABS: Prothrombin Time 10.4 sec (9.3-11.0)
--- NOTE | 2019-10-06 18:36 | DI.VRAD_ITS ---
PROCEDURE INFORMATION: Exam: XR Chest, 1 View Exam date and time: 10/06/2019 6:15 PM Age: 58 years old Clinical indication: Patient HX: Epigastric pain TECHNIQUE: Imaging protocol: XR of the chest Views: 1 view. COMPARISON: CR CHEST 2 VIEWS PA,LAT 03/28/2017 2:39 PM FINDINGS: Lungs: Unremarkable. No consolidation. Pleural space: Unremarkable. No pleural effusion. No pneumothorax. Heart/Mediastinum: Unremarkable. No cardiomegaly. Bones/joints: Unremarkable. IMPRESSION: No acute findings. Dictated and Authenticated by: Anna Dc MD. Ordering:GATO Harper MD
[2019-10-06 18:50] LABS: ALT 10 U/L (16-63); AST 15 U/L (15-37); Albumin 4.2 g/dL (3.4-5.0); Alkaline Phosphatase 69 U/L (46-116); Anion Gap 9.7 mmol/L (3-11); BUN 17 mg/dL (7-18); Bilirubin, Total 0.7 mg/dL (0.2-1.0); CO2 25.3 mmol/L (21.0-32.0); CREATININE 1.05 mg/dL (0.70-1.30); Calcium 9.1 mg/dL (8.5-10.1); Chloride 103 mmol/L (98-107); Glucose 97 mg/dL (74-106); Magnesium 1.9 mg/dL (1.8-2.4); Potassium 3.2 mmol/L (3.5-5.1); Sodium 138 mmol/L (136-145); Total Protein 7.4 g/dL (6.4-8.2)
[2019-10-06 18:59] LABS: Troponin I < 0.05 ng/mL (<0.06)
--- NOTE | 2019-10-06 20:05 | NUR.NOTE ---
Assumed care of pt. Report from Yeni. Pt lying in bed in NAD. Denies pain, nausea at this time. Plan for repeat trop and ekg.
--- NOTE | 2019-10-06 20:58 | ED.GENADUL_ITS ---
Discharge Plan Disposition Patient Disposition: HOME Condition: Stable Discharge Details Chief Complaint: Nausea/Vomit/Diar Clinical Impression: Abdominal pain Primary Care Provider: Drew Gipson ED Provider: Leroy Nevarez Home Meds and New Rx's Prescriptions: New pantoprazole [Protonix] 40 mg tablet,delayed release (DR/EC) 40 mg PO DAILY Qty: 14 RF: 0 Continued cjzvivpqk-andpwjgc-tsrmkzeltj 50-200-200 mg tablet 1 tab PO HS RF: 0 cetirizine [Allergy Relief (cetirizine)] 10 mg tablet 5 mg PO DAILY PRNRF: 0 vitamin E mixed 400 unit capsule 400 unit PO DAILY RF: 0 carbidopa-levodopa 25-100 mg tablet 2 tab PO QID RF: 0 Nuedexta 20-10 mg capsule 1 cap PO Q12H RF: 0 entacapone 200 mg tablet 200 mg PO QID RF: 0 triamcinolone acetonide 0.1 % cream 1 applic TP BID Qty: 30 RF: 4 lansoprazole 30 mg capsule,delayed release(DR/EC) 30 mg PO .every other day Qty: 90 RF: 3 albuterol sulfate 90 mcg/actuation HFA aerosol inhaler 2 puff IH Q4H PRN (Reason: asthma) Qty: 8.5 RF: 8 Discharge Instructions Instructions: Abdominal Pain (ED) Additional Instructions: As we discussed your rapid cardiac rule out here in the ER was negative. I truly believe that your symptoms are GI related, likely secondary to acid reflux or chronic GERD. I have given you a prescription for Protonix, take as directed. As we discussed I do believe that it is imperative that you follow-up with your primary care provider in next available appointment. I recommend contacting them tomorrow for prompt outpatient reevaluation. Outpatient referral to general surgery for endoscopy very well may be indicated for further evaluation of your symptoms. Also like we discussed, given your age and symptoms, outpatient cardiac work-up, stress test, etc. very well may be indicated if you continue to have symptoms. Please watch for new or worsening symptoms and return to the ER for any concerns. Medical Decision Making 58-year-old gentleman with history of asthma, Parkinson's disease, GERD, hiatal hernia, presents to the ER with 2-day history of nausea, vomiting, epigastric burning. He attributes this to acid reflux. The nausea and vomiting began 2 weeks ago, subsided but the burning has persisted. He did take anti- inflammatory therapy regularly after shoulder arthroscopic. He does not smoke and he has no cardiac history. Nausea, vomiting, dry heaving began again earlier today. His symptoms certainly seem to be GI related, acid reflux, GERD, etc. however certainly I believe having a cardiac rule out is indicated in his case. Cardiac etiology is very low on my differential. Will provide a full dose aspirin however will also provide IV Zofran, GI cocktail, IV Protonix and IV fluid. Will initiate a cardiac work-up. Case and initial presentation discussed with Dr. Redman. Initial work-up in the ER was unremarkable. Laboratory values did not reveal any obvious emergent process. Troponin was less than 0.05. Repeat evaluation, patient resting comfortably and reports that he is asymptomatic. He denies any nausea or abdominal pain-epigastric burning. He is agreeable to waiting in the ER for repeat troponin and EKG. Repeat EKG p erformed at [address] reviewed and interpreted with Dr. Jaeger. Sinus rhythm, ventricular rate of 80. Continues to have inverted T's V2 V3 and less than 1 mm depression in V4 through 6. No STEMI. No dynamic changes when compared to earlier EKG. Repeat troponin less than 0.05. Upon reevaluation patient remains asymptomatic. He has no additional questions or concerns and is comfortable discharge. Provide a prescription of Protonix. We discussed the importance of outpatient follow-up through his primary care provider. Outpatient referral to general surgery-GI for endoscopy may be indicated. As we discussed outpatient cardiac work-up including stress test and echocardiogram may also be indicated. Medical Records Medical records reviewed: Yes I reviewed the patient's medical records. Imaging Data Radiologic Study: Attestation: I personally reviewed and interpreted this imaging study as follows: Imaging: X-Ray Radiologist's impression: Chest x-ray negative per virtual radiology Lab Data Lab results reviewed: Yes I reviewed the patient's lab results. Lab results narrative: Laboratory Tests Range/Units 10/06/19 10/06/19 10/06/19 17:55 17:55 17:55 WBC (4.4-10.8) k/cumm 8.68 RBC (4.50-6.00) m/cumm 5.02 Hgb (13.5-17.5) g/dL 15.2 Hct (40.0-50.0) % 41.6 MCV (80-95) fL 82.9 MCH (27.0-33.0) pg 30.3 MCHC (32.0-36.0) g/dL 36.5 H RDW (11.8-14.1) % 12.5 Plt Count (130-400) x1000/uL 277 MPV (8.0-11.0) fL 10.1 Immature Gran % % 0.1 Neutrophils % 66.3 Lymphocytes % 25.7 Monocytes % 6.6 Eosinophils % 1.0 Basophils % 0.3 Absolute Neutrophils (1.2-6.7) k/cumm 5.75 Absolute Lymphocytes (1.2-3.4) k/cumm 2.23 Absolute Monocytes (0.11-0.7) k/cumm 0.57 Absolute Eosinophils (0.0-0.7) k/cumm 0.09 Absolute Basophils (0.0-0.2) k/cumm 0.03 PT (9.3-11.0) sec 10.4 INR (0.9-1.1) 1.0 Sodium (136-145) mmol/L 138 Potassium (3.5-5.1) mmol/L 3.2 L Chloride (98-107) mmol/L 103 Carbon Dioxide (21.0-32.0) mmol/L 25.3 Anion Gap (3-11) mmol/L 9.7 BUN (7-18) mg/dL 17 Creatinine (0.70-1.30) mg/dL 1.05 Estimated GFR/1.73 m2 (mL/min/1.73m2) >= 60.00 Glucose (74-106) mg/dL 97 Calcium (8.5-10.1) mg/dL 9.1 Magnesium (1.8-2.4) mg/dL 1.9 Total Bilirubin (0.2-1.0) mg/dL 0.7 AST (15-37) U/L 15 ALT (16-63) U/L 10 L Alkaline Phosphatase (46-116) U/L 69 Troponin I (<0.06) ng/mL < 0.05 Total Protein (6.4-8.2) g/dL 7.4 Albumin (3.4-5.0) g/dL 4.2 Range/Units 10/06/19 21:00 WBC (4.4-10.8) k/cumm RBC (4.50-6.00) m/cumm Hgb (13.5-17.5) g/dL Hct (40.0-50.0) % MCV (80-95) fL MCH (27.0-33.0) pg MCHC (32.0-36.0) g/dL RDW (11.8-14.1) % Plt Count (130-400) x1000/uL MPV (8.0-11.0) fL Immature Gran % % Neutrophils % Lymphocytes % Monocytes % Eosinophils % Basophils % Absolute Neutrophils (1.2-6.7) k/cumm Absolute Lymphocytes (1.2-3.4) k/cumm Absolute Monocytes (0.11-0.7) k/cumm Absolute Eosinophils (0.0-0.7) k/cumm Absolute Basophils (0.0-0.2) k/cumm PT (9.3-11.0) sec INR (0.9-1.1) Sodium (136-145) mmol/L Potassium (3.5-5.1) mmol/L Chloride (98-107) mmol/L Carbon Dioxide (21.0-32.0) mmol/L Anion Gap (3-11) mmol/L BUN (7-18) mg/dL Creatinine (0.70-1.30) mg/dL Estimated GFR/1.73 m2 (mL/min/1.73m2) Glucose (74-106) mg/dL Calcium (8.5-10.1) mg/dL Magnesium (1.8-2.4) mg/dL Total Bilirubin (0.2-1.0) mg/dL AST (15-37) U/L ALT (16-63) U/L Alkaline Phosphatase (46-116) U/L Troponin I (<0.06) ng/mL < 0.05 Total Protein (6.4-8.2) g/dL Albumin (3.4-5.0) g/dL ECG Data Attestation: I personally reviewed and interpreted this ECG (s) as follows: Interpretation: Initial EKG performed at 1750. Reviewed and interpreted with Dr. Bugbee. Sinus rhythm, ventricular 75. No STEMI. T wave inversion V2-V3. Less than [address] depression V4 through 6. HPI General Mode of arrival: ambulatory . Date/Time Provider Initiated Documentation: 10/06/19 17:55 . Limitations to Documentation: no limitations . Information obtained by: patient . HPI Narrative: This is a 58-year-old gentleman with past medical history of GERD, asthma, Parkinson's disease, who presents to the ER for what he believes to be severe acid reflux. He reports roughly 2 weeks ago he had nausea, vomiting, epigastric burning. He was seen both by his primary care provider and his neurology team. They felt as though this may be a direct result of how and when he was taking his medications and had him modify his regimen. The nausea and vomiting went away however he continues to have epigastric burning. He has been taking Motrin on a fairly regular basis up until 2 weeks ago for some shoulder arthroscopic. Today around 1-2 PM he felt as though the burning was increased and he began having nausea, dry heaves, unable to hold his medications down. He denies recent illness or trauma. Denies headache, chest pain, shortness of breath, radiation of the burning in his epigastric region in any direction. He denies dysuria, hematuria, back pain, diarrhea or constipation. Patient does not smoke, has no cardiac history. Related Data Home Medications Medication Instructions Recorded Confirmed carbidopa 50 mg-levodopa 200 1 tab PO HS tab 12/12/17 10/06/19 mg-entacapone 200 mg tablet cetirizine 10 mg tablet 5 mg PO DAILY PRN 12/12/17 10/06/19 vitamin E mixed 400 unit capsule 400 unit PO DAILY cap 12/12/17 10/06/19 carbidopa 25 mg-levodopa 100 mg 2 tab PO QID tab 06/12/18 10/06/19 tablet dextromethorphan 20 mg-quinidine 1 cap PO Q12H 06/12/18 10/06/19 10 mg capsule triamcinolone acetonide 0.1 % 1 applic TP BID #30 gm 05/20/19 10/06/19 topical cream lansoprazole 30 mg capsule,delayed 30 mg PO .every other day #90 cap 05/30/19 10/06/19 release albuterol sulfate 90 mcg/actuation 2 puff IH Q4H PRN #8.5 gm 04/01/20 06/29/20 aerosol inhaler entacapone 200 mg tablet 200 mg PO QID 09/10/19 10/06/19 pantoprazole [Protonix] 40 mg PO DAILY #14 tab 10/06/19 Previous Rx's Medication Instructions Recorded triamcinolone acetonide 0.1 % 1 applic TP BID #30 gm 05/20/19 topical cream lansoprazole 30 mg capsule,delayed 30 mg PO .every other day #90 cap 05/30/19 release albuterol sulfate 90 mcg/actuation 2 puff IH Q4H PRN #8.5 gm 07/09/19 aerosol inhaler pantoprazole [Protonix] 40 mg PO DAILY #14 tab 10/06/19 Allergies Allergy/AdvReac Type Severity Reaction Status Date / Time bee pollen Allergy Severe ANAPHYLAXIS Verified 10/06/19 17:56 General Stated Complaint: Nausea/Vomit/Diar RICHELLE: 3 Review of Systems Constitutional Constitutional: Denies fatigue, Denies fever(s), Denies headache(s) and Denies weakness Eyes Eyes: Denies change in vision ENT Ears, Nose, Mouth, and Throat: Denies headache(s) and Denies sore throat Cardiovascular Cardiovascular: Denies chest pain and Denies dyspnea Respiratory Respiratory: Denies cough and Denies dyspnea Gastrointestinal Gastrointestinal: Reports abdominal pain, Reports heartburn, Denies diarrhea, Reports nausea, Reports vomiting and Denies hematemesis Genitourinary Genitourinary: Denies dysuria Musculoskeletal Musculoskeletal: Denies back pain, Denies numbness and Denies tingling Integumentary/Breasts Skin/Breast: Denies rash Neurologic Neurologic: Denies headache(s), Denies numbness, Denies tingling and Denies weakness Endocrine Endocrine: Denies fatigue [facility] Medical History Adenomatous colon polyp (Resolved) 07/19/18, Dr Estes, [facility], tubular and sessile serrated adenoma, repeat 3 years. Asthma (Chronic) Family history of cardiovascular disease (Inactive) GERD (gastroesophageal reflux disease) (Chronic) Hiatal hernia (Chronic) History of Parkinson's disease (Acute) Microhematuria (Acute) Right tennis elbow (Acute) Surgical History Arthroscopy, Shoulder 1992; left also right EGD - MAC 2004 Fx ankle (Acute) 1984 orif done History of colonoscopy (Chronic) Repair of umbilical hernia 1993 Rupture of biceps tendon (Acute) 2007 repair done Traumatic tear of right rotator cuff (Acute 03/20/19) Injected: 03/25/2019 S/P repair on 04-21-2019 Family History Mother No problems noted. Father Personal history of malignant neoplasm Social History Smoking/Tobacco Use Status: Never Alcohol Intake: current Alcohol Intake frequency: a few times a week Alcohol type: beer Drug use: Never Substance use type: does not use Current gender identity: male Do you feel safe at home: Yes Do you feel safe in your relationship?: Yes Exam Const General: cooperative, healthy appearing, comfortable and no acute distress Orientation: alert, awake and oriented x3 HENMT Head: normal to inspection, normocephalic and atraumatic Face and sinus: normal facial exam Mouth: moist mucous membranes Throat: posterior oropharynx normal Eyes General: appearance normal, both eyes and all related structures Alignment and Position: alignment normal Periorbital: periorbital findings normal Eyelids: eyelids normal Conjunctivae: conjunctivae normal Sclera: sclerae normal Cornea: corneas normal Pupils: PERRL EOM: EOM intact bilaterally Direct ophthalmoscopy: normal light reflex Neck Neck: normal visual inspection, full ROM, no meningeal signs, trachea midline, supple and nontender Chest Chest: normal inspection of the chest and normal palpation of entire chest wall Resp Effort & Inspection: normal respiratory effort and able to speak in complete sentences Auscultation: clear to auscultation bilaterally Cardio Rate: regular rate Rhythm: regular rhythm GI Inspection: normal to inspection Palpation: soft, not firm, no guarding, no masses, no pulsatile masses, not rigid and tender in the epigastrum (Mild) Auscultation: normal bowel sounds Back/Spine/Pelvis Back: No back tenderness Skin General skin exam: no rashes or lesions noted Neuro General: patient alert, patient awake, patient oriented x3, moves all ex tremities and no focal motor deficits Cranial Nerves: CN's II-XI intact bilaterally Cognition: normal cognition Speech: speech normal Motor: muscle tone normal throughout and strength 5/5 throughout Sensory Exam: no sensory deficits noted Extrem General: normal to inspection, full ROM, capillary refill normal, no pedal edema and no calf tenderness Psych Appearance: grossly normal Mental Status: mental status grossly normal Course Vital Signs Vital signs: Vital Signs Temperature 36.6 C 10/06/19 17:48 Pulse 76 10/06/19 17:48 Respiratory Rate 19 10/06/19 17:48 Blood Pressure 146/88 H 10/06/19 17:48 Pulse Oximetry 98 10/06/19 17:48 Temperature 36.6 C 10/06/19 17:48 Temperature Source Skin 10/06/19 17:48 Pulse 75 10/06/19 19:46 Pulse 77 10/06/19 19:46 Respiratory Rate 10/06/19 19:46 Respiratory Effort Non-Labored 10/06/19 18:48 Blood Pressure 116/73 10/06/19 19:46 Blood Pressure Mean 84 10/06/19 19:46 Blood Pressure Position Sitting 10/06/19 17:48 Pulse Oximetry 94 L 10/06/19 19:46 Oxygen Delivery Method Room Air 10/06/19 17:48 Oxygen Flow Rate 0 10/06/19 17:48 Pain Level 5 10/06/19 17:48 Lab/Test Results Lab/Test Results: Laboratory Tests Range/Units 10/06/19 10/06/19 10/06/19 17:55 17:55 17:55 WBC (4.4-10.8) k/cumm 8.68 RBC (4.50-6.00) m/cumm 5.02 Hgb (13.5-17.5) g/dL 15.2 Hct (40.0-50.0) % 41.6 MCV (80-95) fL 82.9 MCH (27.0-33.0) pg 30.3 MCHC (32.0-36.0) g/dL 36.5 H RDW (11.8-14.1) % 12.5 Plt Count (130-400) x1000/uL 277 MPV (8.0-11.0) fL 10.1 Immature Gran % % 0.1 Neutrophils % 66.3 Lymphocytes % 25.7 Monocytes % 6.6 Eosinophils % 1.0 Basophils % 0.3 Absolute Neutrophils (1.2-6.7) k/cumm 5.75 Absolute Lymphocytes (1.2-3.4) k/cumm 2.23 Absolute Monocytes (0.11-0.7) k/cumm 0.57 Absolute Eosinophils (0.0-0.7) k/cumm 0.09 Absolute Basophils (0.0-0.2) k/cumm 0.03 PT (9.3-11.0) sec 10.4 INR (0.9-1.1) 1.0 Sodium (136-145) mmol/L 138 Potassium (3.5-5.1) mmol/L 3.2 L Chloride (98-107) mmol/L 103 Carbon Dioxide (21.0-32.0) mmol/L 25.3 Anion Gap (3-11) mmol/L 9.7 BUN (7-18) mg/dL 17 Creatinine (0.70-1.30) mg/dL 1.05 Estimated GFR/1.73 m2 (mL/min/1.73m2) >= 60.00 Glucose (74-106) mg/dL 97 Calcium (8.5-10.1) mg/dL 9.1 Magnesium (1.8-2.4) mg/dL 1.9 Total Bilirubin (0.2-1.0) mg/dL 0.7 AST (15-37) U/L 15 ALT (16-63) U/L 10 L Alkaline Phosphatase (46-116) U/L 69 Troponin I (<0.06) ng/mL < 0.05 Total Protein (6.4-8.2) g/dL 7.4 Albumin (3.4-5.0) g/dL 4.2
[2019-10-06 21:28] LABS: Troponin I < 0.05 ng/mL (<0.06)
== END 2019-10-06 21:50 | disposition home or self-care (01) ==
PROVIDERS: Emergency Provider Physician Assistant; PCP Emergency Medicine
DX: R10.13 Epigastric pain (principal); R11.2 Nausea with vomiting, unspecified; K21.9 Gastro-esophageal reflux disease without esophagitis; G20 Parkinson's disease
CPT/HCPCS: 36415; 80053; 93005; 96361; 96374; 99285; 71045; 83735; 84484; 85025; 85610; 93010

== ENCOUNTER 2019-10-08 04:27 | Outpatient (CLI) | payer BC, SELFPAY ==
[2019-10-08 15:34] LABS: Abs Immature Grans 0.01 k/cumm (0.0-0.09); Absolute Basophil Count 0.03 k/cumm (0.0-0.2); Absolute Eosinophil Count 0.05 k/cumm (0.0-0.7); Absolute Lymphocyte Count 1.42 k/cumm (1.2-3.4); Absolute Monocyte Count 0.62 k/cumm (0.11-0.7); Absolute Neutrophil Count 7.32 k/cumm (1.2-6.7); Basophils % 0.3; Eosinophils % 0.5; HGB 15.1 g/dL (13.5-17.5); Immature Grans % 0.1 %; Mean Corpuscular Hemoglobin 30.4 pg (27.0-33.0); Mean Corpuscular Volume 84.5 fL (80-95); Monocytes % 6.6; Neutrophils % 77.5; Platelet Count 286 x1000/uL (130-400); RBC 4.97 m/cumm (4.50-6.00); RBC Distribution Width 12.6 % (11.8-14.1); White Blood Cell Count 9.45 k/cumm (4.4-10.8)
[2019-10-08 16:48] LABS: ALT 9 U/L (16-63); AST 12 U/L (15-37); Albumin 4.2 g/dL (3.4-5.0); Alkaline Phosphatase 67 U/L (46-116); Anion Gap 10.5 mmol/L (3-11); BUN 15 mg/dL (7-18); Bilirubin, Total 0.7 mg/dL (0.2-1.0); CO2 25.5 mmol/L (21.0-32.0); CREATININE 0.92 mg/dL (0.70-1.30); Calcium 9.5 mg/dL (8.5-10.1); Chloride 104 mmol/L (98-107); Creatine Kinase 122 U/L (39-308); Glucose 109 mg/dL (74-106); Potassium 3.8 mmol/L (3.5-5.1); Sodium 140 mmol/L (136-145); Total Protein 7.1 g/dL (6.4-8.2)
[2019-10-09 09:50] LABS: Lyme Ab w Rflx to Lyme Confirm Negative (Negative)
[2019-10-09 10:27] LABS: PSA, Screening 3.7 ng/mL (0.0-3.5)
== END 2019-10-08 04:47 ==
PROVIDERS: PCP Emergency Medicine; Visit Provider Psychiatry & Neurology Neurology
DX: K21.9 Gastro-esophageal reflux disease without esophagitis (principal); G20 Parkinson's disease; M25.511 Pain in right shoulder; Z12.5 Encounter for screening for malignant neoplasm of prostate; M79.18 Myalgia, other site
CPT/HCPCS: 36415; 80053; 82550; 84153; 85025; 86618

== ENCOUNTER 2020-03-09 08:40 | Outpatient (REF) | payer BC, SELFPAY ==
[2020-03-09 21:58] LABS: PSA, Diagnostic 2.2 ng/mL (0.0-3.5)
== END 2020-03-09 09:00 ==
LOC: LBN 08:40
PROVIDERS: PCP Emergency Medicine; Visit Provider Emergency Medicine
DX: R97.20 Elevated prostate specific antigen [PSA] (principal)
CPT/HCPCS: 84153

== ENCOUNTER 2020-04-07 02:50 | Outpatient (CLI) | payer BC, SELFPAY ==
[2020-04-09 08:36] LABS: PSA, Diagnostic 2.4 ng/mL (0.0-3.5)
== END 2020-04-07 03:10 ==
PROVIDERS: PCP Emergency Medicine; Visit Provider Emergency Medicine
DX: R97.20 Elevated prostate specific antigen [PSA] (principal)
CPT/HCPCS: 36415; 84153

== ENCOUNTER 2020-04-16 10:58 | Outpatient (CLI) | payer OTHER, SELFPAY ==
[2020-04-17 14:05] LABS: COVID-19 RT-PCR UVMMC Result Negative (Negative)
== END 2020-04-16 11:18 ==
PROVIDERS: PCP Emergency Medicine; Visit Provider Surgery
DX: Z11.52 Encounter for screening for COVID-19 (principal); Z01.818 Encounter for other preprocedural examination
CPT/HCPCS: U0003

== ENCOUNTER 2020-04-21 09:11 | Day surgery (SDC) | payer OTHER, SELFPAY ==
--- NOTE | 2020-04-21 07:19 | W.PM.ENDDOP ---
Date of service: 04/21/20 Time of Service: 10:13 Endoscopy Report DATE OF PROCEDURE: 04/21/20 PRE-OP DIAGNOSIS: Dysphagia POST-OP DIAGNOSIS: same (esophagitis, gastritis) PROCEDURE: EGD with biopsies SURGEON: Cheyanne Schmidt ANESTHESIA: other (general/ASA 2/Torres De Los Santos, FRANCIE) ESTIMATED BLOOD LOSS: 3 PATHOLOGY: other (antrum bx, GE junction bx) COMPLICATIONS: None DISPOSITION: same day INDICATIONS: Hx of GERD since 2004. Has been on Lasoprazole daily. Recently has had increase in symptoms. His Lansoprazole was increased to BID. 2 weeks ago he was started on Carafate. He has had no improvement in his symptoms. We reviewed differential. As he has had no improvement on his antacids I wonder whether the dysphagia is due to his Parkinsons. IF EGD is normal then I will set him up for esophageal manometry. We discussed EGD and complications. Risks, benefits and complications have been reviewed. Complications include but are not limited to bleeding, pain, perforation, sore throat, aspiration, and adverse reaction to the medications. Questions were entertained and answered to their satisfaction and they wished to proceed. No guarantees were given or implied. We discussed COVID testing as well. COVID-19 testing explained to the patient. Reason for test reviewed. Quarantine per state requirements reviewed with patient. Patient understands and agrees to testing. EGD under sedation PROCEDURE START TIME: 10:15 FINDINGS: mild gastritis esophagitis PROCEDURE DESCRIPTION: After informed consent was obtained the patient was take to the procedure room and placed in a supine position. Monitors were applied and a time out was done. The patients name, date of , procedure type, allergies to medications and metal in their body was reviewed. A bite block was placed and the patient was sedated. Once sedated and comfortable the gastroscope was advanced through the oropharynx which was grossly normal into the esophagus. The proximal and mid-esophagus were normal. In the distal esophagus there was inflammation noted. The scope was advanced into the stomach and through the pylorus into the 3rd portion of the duodenum. The duodenum was noted to be normal. The scope was retracted back into the stomach. There was mild inflammation noted. Biopsies were done to rule out H. pylori. There were no ulcers. The scope was retroflexed. The cardia and fundus were noted to be normal. There was no hiatal hernia noted. The scope was retracted back into the esophagus. There was inflammation noted. Biopsies were done of the GE junction to rule out Hammer's. The Z line was irregular with abdnormal tissue in several area measuring approximately 1 cm. The GE junction was at 38 cm. Biopsies of the distal esophagus at 37 cm was done. There was some peristalsis observed. The scope was removed and the patient was woken up and taken back to [facility] in stable condition. Follow up: 2 weeks in the office
--- NOTE | 2020-04-21 07:21 | W.PM.DSUDISC ---
Discharge Plan Disposition Patient Disposition: HOME Condition: Good Discharge Details Reason For Visit: EGD Attending Provider: Cheyanne Schmidt Primary Care Provider: Drew Gipson Home Meds and New Rx's Prescriptions: Continued vitamin E mixed 400 unit capsule 400 unit PO DAILY RF: 0 carbidopa-levodopa 25-100 mg tablet 2 tab PO QID RF: 0 lansoprazole 30 mg capsule,delayed release(DR/EC) 30 mg PO BID Qty: 90 RF: 3 gabapentin 300 mg/6 mL (6 mL) solution 300 mg PO BID Qty: 240 RF: 12 triamcinolone acetonide 0.1 % cream 1 applic TP BID Qty: 30 RF: 4 albuterol sulfate 90 mcg/actuation HFA aerosol inhaler 2 puff IH Q4H PRN (Reason: asthma) Qty: 8.5 RF: 8 Discontinued sucralfate [Carafate] 100 mg/mL suspension 5 ml PO QID Qty: 200 RF: 3 Discharge Instructions Instructions: Diet for Stomach Ulcers and Gastritis (ED), Esophagitis (DC) Additional Instructions: Findings: mild inflammation of the esophagus mild inflammation of the stomach Follow up: 2 weeks in the office Medications: Stop carafate. Continue with lansoprazole until I see you in the office. Please call if you develop: fevers >101.5 Nausea or Vomiting Abdominal pain that is not transient DAY SURGERY UNIT POST ENDOSCOPY INSTRUCTIONS 1. Because there will be medication in your system for the next 24 hours, you may feel a little sleepy. Your coordination will be affected. Therefore: a. Do not drive or operate dangerous equipment for 24 hours. b. Do not drink alcohol beverages for 24 hours (not even beer). c. Plan to go home and rest for the day. 2. Generally there are no restrictions on your activity after a day or so has gone by, but you may feel a bit fatigued for a few days. 3 After you arrive home you may have a light meal and return to a normal diet as you can tolerate it without feeling sick to your stomach. 4. After surgery, you may feel pain or discomfort. This should be only transient, but if it persists please contact your doctor. 5. If there are any questions regarding the findings of your procedure, please feel free to contact your doctor. 6. If you are unable to contact your doctor with a problem, contact the hospital at [phone]. 7. Continue all your regular medications unless directed otherwise. I understand the above instructions and have no questions. Signature of Patient or Responsible Adult Escort Date/Time Name of Responsible Adult Escort Signature of Nurse Date/Time Activity:: Activity as Tolerated Diet:: low acid Discharge Orders Discharge Orders: Discharge Order (Routine); Ordered 04/21/20 Ordered By: Cheyanne Schmidt
[2020-04-21 09:28] VITALS: BP 133/85; PULSE 82; RESP 16; TEMP 36.4; O2SAT 97
[2020-04-21] MEDS: Lactated Ringers 1,000 ML 80 ML IV (09:51)
--- NOTE | 2020-04-21 10:15 | STOM_PTH ---
PATIENT: Willie Farris LOC: [facility] U#:[id number] AGE/SX: 59/M ROOM: RE04/21/[address]: Cheyanne Schmidt MD : [id number] BED: DIS: 04/21/2020 SPEC #: [id number] RECD: 04/21/20 12:32 STATUS: EBENEZER REQ #: [id number] NIKKI: 04/21/20 10:[address]: Cheyanne Schmidt DEPT: Surgical Specimen RECD BY: [place] Barragan ENTERED: 04/21/20 12:34 SP TYPE: STOMACH OTHR DR: Drew Gipson DO Tissues: 1 - STOMACH BIOPSY 2 - ESOPHAGUS BIOPSY 3 - ESOPHAGUS BIOPSY Procedures: GROSS AND MICRO LEVEL 4 Comments: [id number]
[2020-04-21 11:15] VITALS: BP 107/69; PULSE 75; RESP 16; TEMP 36.5; O2SAT 95
== END 2020-04-21 11:40 | disposition home or self-care (01) ==
LOC: SUR 09:11
PROVIDERS: PCP Emergency Medicine; Visit Provider Surgery
PROC: 0DJ68ZZ Inspection of Stomach, Via Natural or Artificial Opening Endoscopic (ICD-10-PCS; CPT 43235; principal; 2020-04-21 10:15)
DX: R13.10 Dysphagia, unspecified (principal); K21.00 Gastro-esophageal reflux disease with esophagitis, without bleeding; K31.89 Other diseases of stomach and duodenum; K29.70 Gastritis, unspecified, without bleeding
CPT/HCPCS: 43239; 88305; J2001

== ENCOUNTER 2020-05-14 02:17 | Outpatient (CLI) | payer OTHER, SELFPAY ==
[2020-05-14] MEDS: Barium Sulfate 60% W/V 355 ML BTL PO (09:49)
[2020-05-14] MEDS: Barium Sulfate 700 MG TAB PO (09:50)
--- NOTE | 2020-05-14 09:50 | DI.RAD_ITS ---
EXAM: RF BARIUM SWALLOW CLINICAL HISTORY: Dysphagia, EGD unremarkable, has Parkinsons,R13.10 TECHNIQUE: 2D and realtime digital imaging was performed. CONTRAST MATERIAL: Oral barium contrast was administered. COMPARISON: CR CHEST 2 VIEWS PA,LAT from 03/28/2017 CR,XR XR PORTABLE CHEST AP from 10/06/2019 FINDINGS: CHEST X-RAY: The heart and pulmonary vasculature are within normal limits. The lungs are clear. No pl eural effusion or pneumothorax is present. The bones are within normal limits fo the patient's age. O rthopedic anchors are seen in the right humeral head. ESOPHAGRAM: The esophagus is patent with no evidence for erosions, fold thickening, strictures, or ma sses. With regards to the motility, there is a normal primary stripping wave. No tertiary contraction s were noted. There is no hiatal hernia or gastroesophageal reflux. IMPRESSION: Normal esophogram
== END 2020-05-14 02:18 | disposition home or self-care (01) ==
LOC: DI 02:17
PROVIDERS: PCP Emergency Medicine; Visit Provider Surgery
DX: R13.10 Dysphagia, unspecified (principal); G20 Parkinson's disease
CPT/HCPCS: 74221; J3490

== ENCOUNTER 2020-05-24 01:33 | Outpatient (CLI) | payer OTHER, SELFPAY ==
[2020-05-25 11:49] LABS: COVID-19 RT-PCR UVMMC Result Negative (Negative)
== END 2020-05-24 01:34 | disposition home or self-care (01) ==
LOC: LBO 01:34
PROVIDERS: PCP Emergency Medicine; Visit Provider Family Medicine
DX: Z20.822 Contact with and (suspected) exposure to COVID-19 (principal); Z01.818 Encounter for other preprocedural examination
CPT/HCPCS: U0003

== ENCOUNTER 2020-05-26 01:09 | Outpatient (CLI) | payer OTHER, SELFPAY ==
--- NOTE | 2020-05-26 07:30 | DI.RAD_ITS ---
TECHNIQUE: Modified barium swallow was performed in conjunction with speech pathologist. CONTRAST MATERIAL: Oral barium Oral water soluble contrast was administered. Different consistencie s including a radiopaque barium pill COMPARISON: No exams were available for comparison FINDINGS: This study reveals normal oral and pharyngeal phases of swallowing with no evidence of penetration or aspiration nor significant pharyngeal nor vallecular residue. Also no evidence of hypertense upper esophageal sphincter nor Zenker's diverticulum. No cervical osteophytes. Esophageal phase reveals normal esophageal diameter with no evidence of tertiary waves nor corkscrewi ng to suggest presbyesophagus. Her, there was significant stasis of thick barium column and paste at the mid-upper thoracic esophageal level which did clear into the stomach with further liquid wash. Lateral esophagram run does not reveal posterior indentation to suggest the presence of a culprit armani rrant right subclavian artery. There is no evidence of hiatal hernia nor Schatzki ring and the GE junction appeared unremarkable. T here are no tertiary waves demonstrated. IMPRESSION: Findings as above. No penetration or aspiration demonstrated on this study. The main finding is eso phageal stasis, as detailed above. Fluoro Time: 2 minutes, 57 seconds
--- NOTE | 2020-05-26 14:22 | ST.MBS ---
Modified Barium Swallow Date of service: 05/26/20 Study Findings: Videofluoroscopic Swallowing Evaluation / Modified Barium Swallow Study (VFSE/MBSS) Speech Language Pathology Report Referring Doctor: Martine Schmidt MD HPI: Pt is a 59 year old male with pmhx significant for asthma, duodenitis, GERD, hiatal hernia, microhematuria, and Parkinson's disease, referred for VFSE/MBSS given report of oropharyngeal dysphagia symptoms. Previous Imaging: Upper Endoscopy 04/21/20 mild gastritis, mild esophagitis SUBJECTIVE: Patient reports consistent pharyngeal globus after swallowing pills, occasionally after solid foods (ie bites of apple), states he can sometimes get pills/food to pass by following with thin liquid, however is often left with globus sensation (motions to mid pharynx) and resulting gross powder taste in oral cavity 10-30 minutes after swallowing pills (takes sinemat for PD 4x/day at 5am, 9am, 1pm, 5pm, also taking omeprazole 40 mg twice daily for GERD); continues to report consistent dyspnea and difficulties with getting a full breath despite conscious effort with breathing and ongoing difficulties with managing reflux symptoms despite recent change in medication management. EAT-10: 15 (above 3 indicates difficulties with swallowing safety/efficiency) RSI: 22 (13 or above may indicate significant reflux disease) PILL-5: 15 (above 6 is considered abnormal) PD Specific Monitoring: Swallowing Disturbance Questionnaire (SDQ): 13 OBJECTIVE: Videofluoroscopic Swallow Study (VFSS) was conducted in the lateral and [id number] projections by Speech-Language Pathologist, in collaboration with Radiologist, to evaluate oropharyngeal swallow function. Anatomic view under fluoroscopy: WFL PO barium contrast trials: Oral barium water soluble contrast was administered. Specifically, Varibar thin liquid IDDSI Level 0 (40% w/v), Varibar nectar thick/mildly thick liquid IDDSI Level 2 (40% w/v), Varibar honey (40% w/v), Varibar pudding/pureed/extremely thick IDDSI Level 4 (40% w/v), joy cracker coated in 3 mL Varibar pudding; 13 mm barium tablet - IDDSI Level 7 Regular Solid. PHYSIOLOGIC FINDINGS Oral Phase 1 Lip Closure: 0 no labial escape 2 Tongue Control: 0 cohesive bolus between tongue to palatal seal 3 Bolus Preparation/Mastication: 0 timely and efficient chewing and mashing 4 Bolus Transport/Lingual Motion: 1 delayed initiation of tongue motion (slight) 5 Oral residue: 1 trace residue lining oral structures 6 Initiation of pharyngeal swallow: 0 bolus head at posterior angle of ramus Pharyngeal Phase 7 Velar Elevation: 0 no bolus between soft palate and pharyngeal wall 8 Laryngeal Elevation: 0 complete superior movement of thyroid cartilage with complete approximation of arytenoids to epiglottic petiole 9 Anterior Hyoid Excursion: 0 complete anterior movement 10 Epiglottic Movement: 1 partial inversion 11 Laryngeal Vestibule Closure: 0 complete; no air or contrast in the laryngeal vestibule 12 Pharyngeal Stripping Wave: 1 present-diminished (slight) 13 Pharyngeal Contraction: 0 complete 14 PES/UES Openin complete distention incomplete duration; no obstruction of flow 15 Tongue Base Retraction: 1 trace column of contrast or air between TB and PW 16 Pharyngeal residue: 1 trace residue within or on pharyngeal structures Siobhan Pharyngeal Residue Severity Rating Scale (YPRS) (Lucrecia, et al, 2015) Vallecula Residue Severity II Trace 1-5% Trace coating of the mucosa Pyriform Sinus Residue Severity II Trace 1-5% Trace coating of the mucosa Esophageal Phase (partial) NOTE: This study was performed for interpretation only of the oropharyngeal and pharyngoesophageal domains of swallowing. It is not intended to diagnose any other radiologic abnormalities or substitute for a formal esophagram study. 17 Esophageal Clearance Upright Position: 2 esophageal retention with retrograde flow below pharyngoesophageal segment Overall 8-Point Penetration-Aspiration Scale (PAS) (Rosenkatiek, et al, 1996) 1 - No material enters the airway. Clinical Indicator(s) of Prandial/Postprandial Aspiration: N/A Trialed Compensatory Swallow Strategies & Outcome: Postures Chin Tuck Posture - *patient noted to demonstrate slight forward head posture during study which was unpromtped Maneuvers 3-second Preparatory Set - successful Secondary saliva swallow x1- successful Bolus Modifications Delivery/Alternating Consistencies - Wash with NTL successful Reduced Volume - successful Reduced Rate of Intake - successful Increased Viscosity - successful in assisting barium tablet through thoracic esophagus Dysphagia Outcome and Severity Scale (CINDY) LEVEL 6 - Full PO: normal diet - Within functional limits IMPRESSIONS: Swallow safety is preserved; swallow efficiency is impaired. Oropharyngeal dysphagia as characterized by slightly delayed bolus transport/lingual motion, reduced tongue base retraction and pharyngeal stripping wave, and partial epiglottic inversion, resulting in trace residue in oral cavity and vallecula and piriform sinuses, contrasted by significant esophageal retention and some retrograde flow below pharyngoesophageal segment, likely chronic; of note, 13 mm barium tablet remained in mid-upper thoracic esophagus, cleared with mildly thick liquid via cup sip; both 5 mL moderately thick liquid and 5mL extremely thick/pur?ed solid consistency also remained in mid-upper thoracic esophagus until cleared with thin liquid via sequential cup sip. Dysphagia presentation likely due to Parkinson's disease with related sequelae possibly affecting esophageal motility, and referred globus sensation from mid-upper thoracic esophagus felt by patient in mid pharynx region. Patient appears to be at low risk for potential aspiration PNA/related pulmonary compromise and low-moderate risk for malnutrition/dehydration given continued report of swallowing discomfort and resulting anxiety. Diet modification is not indicated at this time, however compensatory strategies for reducing reported globus sensation may be of benefit as outlined to enhance swallow efficiency and comfort. Swallow prognosis is good-fair given age, caregiver support and pending patient/caregiver training in risk management as outlined. Patient appears to be a good candidate for behavioral prophylactic swallow exercise program in context of expected progression of Parkinson's disease with relation to oropharyngeal swallowing function; recommend continued consultation with GI for noted esophageal inefficiency. PLAN: Diet recommendation: 7-Regular/Easy to Chew Solids 0-Thin Liquids *Pills/tablets/capsules via tsp with pureed texture as appropriate, followed with mildly thickened liquid/NTL via cup sip Diet texture modification is per patient's preference/discretion & collaboration with care team. Risk Management: Behavioral reflux precautions, including upright position during + 90 mins after meals. 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 May address the following: Direct treatment for hypophonia/hypokinetic dysarthria (SO or LSVT), RMST for prophylactic cough strength and respiratory support for speech/voice maintenance. Goal: TBD Follow-up exam: N/A Thank you for allowing me to take part in Mr. Farris's care. Please feel free to contact me with any questions/concerns. Janeth Soto MA [facility]-DITTO MACHINE OPERATOR Speech Language Pathologist DITTO MACHINE OPERATOR SERVICE CODE(S): Modified Barium Swallow Study [id number]
[2020-05-26] MEDS: Barium Sulfate 40% W/V 240 ML BTL 75 ML PO (15:58)
[2020-05-26] MEDS: Barium Sulfate 81% w/w for Oral Suspension 148 GM BTL 80 GM PO (15:58)
[2020-05-26] MEDS: Barium Sulfate Oral Paste 40% W/V 230 ML TUBE 13 ML PO (16:00)
== END 2020-05-26 01:10 ==
LOC: DI 01:09
PROVIDERS: PCP Emergency Medicine; Visit Provider Speech-Language Pathologist
DX: R13.12 Dysphagia, oropharyngeal phase (principal); K21.9 Gastro-esophageal reflux disease without esophagitis; G20 Parkinson's disease
CPT/HCPCS: 74221; J3490

== ENCOUNTER 2020-07-23 02:03 | Outpatient (CLI) | payer OTHER, SELFPAY ==
[2020-07-23 13:58] LABS: COVID-19 PCR Negative (Negative)
== END 2020-07-23 02:04 | disposition home or self-care (01) ==
PROVIDERS: PCP Emergency Medicine; Visit Provider Neurological Surgery
DX: Z20.822 Contact with and (suspected) exposure to COVID-19 (principal); Z01.818 Encounter for other preprocedural examination
CPT/HCPCS: 87635

== ENCOUNTER 2021-09-08 10:59 | Outpatient (CLI) | payer OTHER, SELFPAY ==
--- NOTE | 2021-09-08 09:30 | DI.RAD_ITS ---
Exam(s) XR KNEE RT 3V AP,LAT,SEAMUS EXAM: XR KNEE RT 3V AP,LAT,SEAMUS CLINICAL HISTORY: RIGHT KNEE PAIN. TECHNIQUE: 2D digital imaging was performed. COMPARISON: No exams were available for comparison FINDINGS: 3 views No evidence of fracture or obvious joint effusion. No osseous lesions. No joint space narrowing. N o osteophytes. No osteochondral defects. Bone density normal. No osseous lesions. IMPRESSION: No significant radiographic findings. DATA REPOSITORY: RADIATION DOSE DELIVERED:
== END 2021-09-08 11:00 | disposition home or self-care (01) ==
LOC: DIORS 10:59
PROVIDERS: PCP Nurse Practitioner Family; Referring Provider Nurse Practitioner Family; Visit Provider Student in an Organized Health Care Education/Training Program
DX: M25.561 Pain in right knee (principal)
CPT/HCPCS: 73562

== ENCOUNTER 2021-09-14 03:50 | Outpatient (CLI) | payer OTHER, SELFPAY ==
[2021-09-14 22:35] LABS: PSA, Diagnostic 2.5 ng/mL (<=3.5)
== END 2021-09-14 03:51 | disposition home or self-care (01) ==
LOC: LOS 03:50
PROVIDERS: PCP Nurse Practitioner Family; Visit Provider Emergency Medicine
DX: R97.20 Elevated prostate specific antigen [PSA] (principal)
CPT/HCPCS: 36415; 84153

== ENCOUNTER 2021-11-28 03:32 | Outpatient (CLI) | payer OTHER, SELFPAY ==
[2021-11-28 12:49] LABS: Source Nasal/Nares
[2021-11-28 15:25] LABS: COVID-19 PCR Negative (Negative)
== END 2021-11-28 03:33 | disposition home or self-care (01) ==
PROVIDERS: PCP Nurse Practitioner Family; Visit Provider Student in an Organized Health Care Education/Training Program
DX: Z20.822 Contact with and (suspected) exposure to COVID-19 (principal)
CPT/HCPCS: 87635

== ENCOUNTER 2021-11-30 10:14 | Day surgery (SDC) | payer OTHER, SELFPAY ==
[2021-11-30] VITALS (11 sets, daily range): BP systolic 84–124; BP diastolic 52–81; PULSE 60–81; RESP 16–21; TEMP 36–36.7; O2SAT 95–96; BMI 29.9
--- NOTE | 2021-11-30 09:45 | W.PM.DSUDISC ---
Discharge Plan Disposition Patient Disposition: HOME Condition: Good Discharge Details Reason For Visit: Right knee medial meniscus tear Attending Provider: Gómez Lerner Primary Care Provider: Sammy Daniel Home Meds and New Rx's Prescriptions: New acetaminophen 500 mg tablet 500 mg PO Q6H PRN (Reason: pain) Qty: 60 2RF hydrocodone-acetaminophen 5-325 mg tablet 1 tab PO Q6H PRN (Reason: severe pain) Qty: 6 0RF Rx Instructions: Take one tablet up to every 6 hours as needed for severe postoperative pain ibuprofen 600 mg tablet 600 mg PO TID PRN (Reason: pain) Qty: 60 0RF Continued vitamin E mixed 400 unit capsule 400 unit PO DAILY carbidopa-levodopa 25-100 mg tablet 2 tab PO QID Nuedexta 20-10 mg capsule 1 cap PO Q12H Rx Instructions: Rx per [facility] -hb trazodone 50 mg tablet 50 mg PO HS gabapentin 300 mg/6 mL (6 mL) solution 300 mg PO BID Qty: 240 12RF ondansetron HCl [Zofran] 4 mg tablet 4 mg PO Q6H PRN (Reason: nausea and vomiting) Qty: 30 0RF omeprazole 40 mg capsule,delayed release(DR/EC) 40 mg PO BID Qty: 60 0RF albuterol sulfate 90 mcg/actuation HFA aerosol inhaler 2 puff IH Q4H PRN (Reason: asthma) Qty: 8.5 12RF melatonin 12 mg Tablet,Disintegrating 12 mg PO HS triamcinolone acetonide 0.1 % cream 1 applic TP BID PRN Label Comments: taking PRN Discharge Instructions Stand Alone Forms: [facility] Knee Arthroscopy Referrals: Gómez Lerner MD [ [facility] STAFF PHYSICIAN] - Equipment/Supplies: Partial Weight Bearing Crutches Activity:: Elevate Remove Dressings/Wound Care:: 72 hours Shower/Bathe:: 72 hours Diet:: As Tolerated Discharge Orders Discharge Orders: Discharge Order (Routine); Ordered 11/30/21 Ordered By: Carol Rivera
[2021-11-30] MEDS: Lactated Ringers 1,000 ML 80 ML IV (11:10)
--- NOTE | 2021-11-30 12:06 | W.ANESPRE ---
General Info Date of Service Date Performed: 11/30/21 Height: 5 ft 7 in Weight: 86.8 kg Body Mass Index (BMI): 29.9 Surgical Procedure: Operation Date: 11/30/21 12:55 Proposed Procedure Side Surgeon p Knee Arthroscopy Partial Medial Menisectomy Right Gómez Lerner MD Meds Allergies and Home Medications Allergies Allergy/AdvReac Type Severity Reaction Status Date / Time bee pollen Allergy Severe ANAPHYLAXIS Verified 11/30/21 10:47 Home Medication Medication Instructions Recorded vitamin E mixed 400 unit capsule 400 unit PO DAILY 12/12/17 carbidopa 25 mg-levodopa 100 mg 2 tab PO QID 06/12/18 tablet gabapentin 300 mg/6 mL (6 mL) oral 300 mg (6 mL) PO BID #240 mL 03/09/20 solution ondansetron HCl 4 mg tablet 4 mg PO Q6H PRN nausea and 05/07/20 (Zofran) vomiting #30 tabs dextromethorphan 20 mg-quinidine 1 cap PO Q12H 10/01/20 10 mg capsule (Nuedexta) omeprazole 40 mg capsule,delayed 40 mg PO BID #60 caps 06/07/21 release albuterol sulfate 90 mcg/actuation 2 puff inhalation Q4H PRN asthma 07/28/21 aerosol inhaler #8.5 grams trazodone 50 mg tablet 50 mg PO HS 11/21/21 acetaminophen 500 mg tablet 500 mg PO Q6H PRN pain #60 tabs 11/30/21 hydrocodone 5 mg-acetaminophen 325 1 tab PO Q6H PRN severe pain #6 11/30/21 mg tablet tabs ibuprofen 600 mg tablet 600 mg PO TID PRN pain #60 tabs 11/30/21 melatonin 12 mg disintegrating 12 mg PO HS 11/30/21 tablet triamcinolone acetonide 0.1 % 1 applic topical BID PRN 11/30/21 topical cream Current Visit Medications: Current Medications Generic Name Dose Route Start Last Admin Trade Name Freq PRN Reason Stop Dose Admin Acetaminophen 650 mg 11/30/21 09:44 Acetaminophen 325 Mg Tab PO Q4H PRN PRN Hydrocodone Bitart/Acetaminophen 0 tab 11/30/21 09:44 Hydrocodone 5/Acetaminophen 325 Tab PO Q3H PRN PRN Pain Ringer's Solution 1,000 mls @ 80 mls/hr 11/30/21 06:00 11/30/21 11:10 IV 11/30/21 23:59 80 mls/hr INFUSION CUBA Administration Cefazolin Sodium/Dextrose 2 gm in 50 mls @ 100 mls/hr 11/30/21 06:00 Ancef Duplex IVPB 11/30/21 23:59 PREOP CUBA IV Miscellaneous Supplies 1 each 11/30/21 06:00 Iv Access IV 11/30/21 23:59 DIRECTED CUBA Sodium Chloride 0 ml 11/30/21 06:00 Normal Saline Flush 10 Ml Syr IV 11/30/21 23:59 PRN PRN Sodium Chloride 0 ml 11/30/21 06:00 Normal Saline 10 Ml Vial IJ 11/30/21 23:59 DIRECTED PRN Sterile Water 0 ml 11/30/21 06:00 Water,Injection,Sterile 10 Ml Vial IJ 11/30/21 23:59 DIRECTED PRN PFSH Active Problems Active Problems: Problem Status Onset Code Microhematuria 11/13/14 R31.29 Hiatal hernia 03/08/04 K44.9 Asthma 12/25/12 J45.909 Parkinson disease G20 Traumatic tear of right rotator cuff 03/20/19 S46.011A Lumbar back pain M54.5 Elevated PSA R97.20 Dysphagia R13.10 Heart burn R12 Nausea R11.0 Pain aggravated by coughing and deep breathing R52, R05 Constipation by delayed colonic transit K59.01 Tubular adenoma of colon D12.6 Loss of smell R43.0 Internal derangement of right knee M23.91 Complex tear of medial meniscus of right knee S83.231A Medical History Medical History Actinic keratosis left ear Adenomatous colon polyp 07/19/18, Dr Estes, [facility], tubular and sessile serrated adenoma, repeat 3 years. Asthma Duodenitis (03/08/04) Family history of cardiovascular disease Gastroesophageal reflux disease (03/08/04) Hiatal hernia History of Parkinson's disease History of tennis elbow Hx of gastroesophageal reflux (GERD) Microhematuria Pain of both shoulder joints s/p bilat acromioplasty with chronic pain Right rotator cuff tendonitis Injected 08/15/2018 Right tennis elbow Smell or taste problem decreased smell Medical History Comments:: Deep brain stimulator in situ; pt has controller with him, 2 units; 2007 repair biceps tendon done MD Edgar PARHAM; 11/30/21 pt reports ?delayed emergence under anesthesia postop 8-10hr) 1x Surgical History Surgical History Arthroscopy, Shoulder 1992; left also right EGD - MAC 2004 Fx ankle 1985 orif done History of colonoscopy Hx of tonsillectomy Repair of umbilical hernia 1993 Rupture of biceps tendon 2007 repair done MD Edgar PARHAM; 11/30/21 pt reports delayed emergence under anesthesia postop S/P deep brain stimulator placement S/P rotator cuff repair 04/21/2019 Status post arthroscopy of shoulder Tobacco Smoking/Tobacco Use Status: Never Passive smoking exposure: Yes Second hand exposure: Yes Alcohol Alcohol Intake: current Alcohol intake frequency: holidays/special occasions only Alcohol type: beer Substance Use Substance use: Never Substance use type: does not use Vital Signs and Lab Results Vital Signs Most Recent Vital Signs in EMR: Most Recent Vital Signs Temp Pulse Resp BP Pulse Ox 36.7 C 81 16 124/81 95 11/30/21 10:54 11/30/21 10:54 11/30/21 10:54 11/30/21 10:54 11/30/21 10:54 Lab Results Blood Type / Crossmatch: No Data to Display Complete Blood Count: No Data to Display Complete Metabolic Panel: No Data to Display Liver Function Panel: No Data to Display Coagulation Panel: No Data to Display Cardiac Panel: No Data to Display Arterial Blood Gas: No Data to Display Venous Blood Gas: No Data to Display Pancreas Panel: No Data to Display Thyroid Panel: No Data to Display Infectious Disease: Coronavirus (COVID-19)(PCR) Negative (Negative) 11/28/21 08:14 Coronavirus 2019 Source Nasal/Nares 11/28/21 08:14 Blood Cultures: No Data to Display Toxicology Panel: No Data to Display Anesthesia Assessment and Plan Anesthesia History Personal History: Delayed Emergence Family History: No Family History of Anesthesia Complications Exercise Tolerance Exercise Tolerance: Metabolic Equivalents>4 Pertinent Negatives Pertinent Negatives: No Symptoms of GERD, No Major Cardiovascular Symptoms or Complaints, No Major Pulmonary Symptoms or Complaints and No History of CVA/TIA Cardiac & Pulmonary Exam Cardiac Exam: Normal S1/S2 Heart Sounds Pulmonary Exam: Clear Bilateral Breath Sounds Implantable Cardiac Device Does patient have a Pacemaker or an ICD?: No Airway Exam Known Difficult Airway: No Mallampati Class: 3 Mouth Opening: Normal (> 3cm) Thyromental Distance: Greater than 3 cm Neck Range of Motion: Full ROM Neck Circumference: Normal Teeth Condition: Normal Dentition ASA Classification ASA Score: ASA 2 Emergency Case?: No NPO Status NPO Status: NPO Clears >2 hours, Solids >8 hours Anesthesia Plan Resuscitation Status: Full Code Anesthesia Technique: General Anesthesia Airway Planned: Endotracheal Tube Monitors Used: Standard Monitors Preoperative Comments:: 60 yo male for knee scope. Sig PMHx: hiatal hernia/GERD, asthma, Parkinson's with deep brain stimulator placed, never snoker, occ EtOH. Previous Anes: easy mask, mac 4 grade 1. Plan: BEBA (denies GERD at this time, states is well controlled, but given hiatal hernia and history of barium swallow/EGD in the past related to gastritis will place ETT)
[2021-11-30] MEDS: ceFAZolin 2 GM/50 ML BAG IVPB (12:55)
[2021-11-30] MEDS: Bupivacaine 0.5% Pres-Free 30 ML VIAL (13:35)
[2021-11-30] MEDS: HYDROcodone 5/Acetaminophen 325 TAB PO (15:03)
--- NOTE | 2021-11-30 15:44 | W.ANESPOSTOP ---
Postoperative Evaluation Date, Time and Location Date Performed: 11/30/21 Time Performed: 15:10 Patient Location: Day Surgery Unit Vital Signs Most Recent Imported Vital Signs: Most Recent Vital Signs Temp Pulse Resp BP Pulse Ox 36.0 C L 68 16 109/71 96 11/30/21 15:09 11/30/21 15:09 11/30/21 15:09 11/30/21 15:09 11/30/21 15:09 Pain Score Most Recent Pain Score: Most Recent Pain Score Pain Level 5 11/30/21 15:09 Assessment Mental Status: Awake (Alert & Oriented to Patient Baseline) Airway and Respiratory Function: Patent airway with normal (patient baseline) respiratory exam Cardiovascular Function: Hemodynamically Stable Hydration Status: Adequately Hydrated Nausea & Vomiting: No Nausea or Vomiting Pain: Pain is Moderate or Severe Postoperative Pain Management: Pain being addressed with medication Peripheral Nerve Block: Patient did not receive a nerve block
--- NOTE | 2021-11-30 22:23 | ROE_ITS ---
Date of service: 11/30/21 Time of Service: 13:45 Operative Note Operative Note DATE OF PROCEDURE: 11/30/21 PRE-OP DIAGNOSIS: Right knee medial meniscal tear POST-OP DIAGNOSIS: same PROCEDURE: Right knee arthroscopic partial medial meniscectomy SURGEON: Gómez Lerner Refer to Anesthesia Record ESTIMATED BLOOD LOSS: 0 PATHOLOGY: none sent COMPLICATIONS: None Patient was transported to: PACU Patient's condition: stable Indications: I have seen Willie in clinic for symptoms of a meniscus tear. This was confirmed based on MRI and exam findings. Nonoperative measures were exhausted but disability and pain persisted. I discussed knee arthroscopy with meniscal intervention with the patient. I reviewed the risks of the procedure to include, but not limited to, bleeding, infection, pain, stiffness, damage to nerves or vessels, recurrence, blood clot. Despite these risks, the patient elected to proceed. Findings: A diagnostic arthroscopy was performed with the following findings: Suprapatellar Pouch: No significant inflammation, no loose bodies Medial Compartment: Complex medial meniscal tear, intact meniscal root, grade I/II chondromalacia seen in the central tibia, no loose bodies Notch: ACL and PCL were intact Lateral Compartment: No meniscal tear, intact meniscal root, areas of grade I chondromalacia, no loose bodies Patellofemoral Compartment: No significant chondromalacia, no apparent patellar maltracking Procedure Description: Willie was greeted in the preoperative holding area where the correct side was identified and marked. The consent was reviewed with the patient and signed. The history and physical was updated. All questions were answered. Willie was taken back to the operating room. The patient was placed into the supine position on the operating room table. A nonsterile tourniquet was placed high onto the leg but not used. All bony prominences were well padded. Prophylactic antibiotics in the form of cefazolin were administered. The right leg was then prepped with Chloraprep and draped in a standard fashion with [facility] kinette and extremity drape. A timeout to confirm correct identity, side and site, procedure, allergies, anesthesia, and medical concerns was performed. The leg was placed into a pneumatic leg david, [id number]. A standard lateral portal was made at the lateral border of the patella tendon in line with the inferior pole of the patella, soft spot. The skin and deep tissue was incised sharply and the blunt trochar was inserted atraumatically. A diagnostic arthroscopy was performed and the findings are listed above. The suprapatellar pouch had no significant inflammatory change. The patellofemoral articulation showed no articular damage as well as good tracking. The lateral gutter had no loose bodies and the medial gutter had no loose bodies. The knee was brought into some valgus stress in extension to open the medial compartment. A medial portal was made, localized by a spinal needle. The portal was created with an #11 blade through skin and capsule under direct visualization avoiding any meniscal injury. A probe was then inserted into the medial compartment. The medial compartment was fully inspected. The chondral surface of the tibia showed some areas of grade I/II chondromalacia and the surface of the femur showed no significant chondromalacia. The medial meniscus had a primary parrot- beak type tear with complex characteristics the posterior horn. After evaluatio n, the meniscus was debrided down to a stable base using a series of biters and arthroscopic eugenio. It was probed afterwards to confirm that the tear had been removed and the meniscus was stable. The notch was then inspected which showed an intact ACL and an intact PCL. The leg was then brought into a figure of 4 position. The lateral compartment was fully inspected with the arthroscope and a probe. The chondral surface of the lateral femur showed areas of grade I chondromalacia. The chondral surface of the lateral tibia showed similar findings. The lateral meniscus had no meniscal tear. The arthroscope was brought back into the suprapatellar pouch and the leg was in full extension. The knee was thoroughly irrigated with the arthroscopic fluid on high flow and pressure. Inflow was stopped and excess fluid was removed. The wounds were closed with 4-0 Nylon. The knee was injected with 0.5% bupivacaine. They were dressed with Xeroform, 4x4 gauze, ABD pad, Kerlix and an AOMS wrap. A cryo-cuff was applied. The patient tolerated the procedure well and was returned to the Same Day Surgery area in a stable condition suffering no known complication.
== END 2021-11-30 16:01 | disposition home or self-care (01) ==
PROVIDERS: PCP Nurse Practitioner Family; Visit Provider Student in an Organized Health Care Education/Training Program
PROC: (CPT 29870; principal; 2021-11-30 12:45)
DX: M23.231 Derangement of other medial meniscus due to old tear or injury, right knee (principal); G20 Parkinson's disease; J45.909 Unspecified asthma, uncomplicated
CPT/HCPCS: 29881; J0690; J1100; J2405; J2704

== ENCOUNTER → 2022-01-20 15:58 | Outpatient (CLI) | payer OTHER, SELFPAY ==
--- NOTE | 2022-01-20 11:15 | DI.RAD_ITS ---
Exam(s) XR HAND LT COMPLETE EXAM: XR HAND LT COMPLETE CLINICAL HISTORY: Worsening pain. arthritis/injury M79.642 PAIN LEFT HAND. TECHNIQUE: 2D digital imaging was performed of the left hand. Three views were obtained. AP, later al and oblique views were obtained. COMPARISON: None. FINDINGS: BONES: No acute fracture is present. No bony destructive lesion is seen. JOINTS: No dislocation present. Degenerative changes are seen in the left hand and wrist with joint s pace narrowing and marginal osteophytes. There are moderate degenerative changes seen at the 1st CMC joint. SOFT TISSUE: Normal. IMPRESSION: Osteoarthritis of the left hand. DATA REPOSITORY: RADIATION DOSE DELIVERED:
== END ==
PROVIDERS: PCP Nurse Practitioner Family; Visit Provider Nurse Practitioner Family
DX: M19.042 Primary osteoarthritis, left hand (principal)
CPT/HCPCS: 73130

== ENCOUNTER 2022-05-17 08:19 | Outpatient (CLI) | payer BC, SELFPAY ==
--- NOTE | 2022-05-17 08:15 | RT.EKG_ITS ---
APPROVED REPORT Exam: Resting ECG Reason for Exam: medication monitoring Patient Location: O HR:83 bpm ECG Measurements Heart Rate 83 AXIS HI 143 P 79 QRSd 86 QRS 79 QT 396 T 47 QTc 466 Conclusion Sinus rhythm...normal P axis, V-rate 50- 99 Nonspecific T abnormalities, anterior leads...T <-0.10mV, V2-V4 Artifact in lead(s) I,III,aVR,aVL,V1
== END 2022-05-17 08:20 | disposition home or self-care (01) ==
LOC: DI.CM 08:21
PROVIDERS: PCP Nurse Practitioner Family; Visit Provider Nurse Practitioner Family
DX: Z51.81 Encounter for therapeutic drug level monitoring (principal); R94.31 Abnormal electrocardiogram [ECG] [EKG]
CPT/HCPCS: 93010

== ENCOUNTER 2022-07-28 06:16 | Day surgery (SDC) | payer BC, SELFPAY ==
--- NOTE | 2022-07-27 12:01 | W.PM.DSUDISC ---
Date of service: 07/28/22 Time of Service: 08:29 Discharge Plan Disposition Patient Disposition: Home Condition: Good Discharge Details Reason For Visit: Colonoscopy/colon scope Attending Provider: Carol Estes Primary Care Provider: Sammy Daniel Home Meds and New Rx's Prescriptions: Continued vitamin E mixed 400 unit capsule 400 unit PO DAILY carbidopa-levodopa 25-100 mg tablet 2 tab PO QID Nuedexta 20-10 mg capsule 1 cap PO Q12H Rx Instructions: Rx per [facility] [place] Neurology. -hb trazodone 50 mg tablet 50 mg PO HS gabapentin 300 mg/6 mL (6 mL) solution 300 mg PO BID Qty: 240 12RF ondansetron HCl [Zofran] 4 mg tablet 4 mg PO Q6H PRN (Reason: nausea and vomiting) Qty: 30 0RF albuterol sulfate 90 mcg/actuation HFA aerosol inhaler 2 puff IH Q4H PRN (Reason: asthma) Qty: 8.5 12RF triamcinolone acetonide 0.1 % cream 1 applic TP BID PRN (Reason: rash) Qty: 15 3RF epinephrine 0.3 mg/0.3 mL auto-injector 0.3 mg IM ONCE Qty: 2 2RF Rx Instructions: as a single dose; may repeat once omeprazole 40 mg capsule,delayed release(DR/EC) 40 mg PO BID Qty: 60 0RF melatonin 12 mg Tablet,Disintegrating 12 mg PO HS ibuprofen 600 mg tablet 600 mg PO TID PRN (Reason: pain) Qty: 60 0RF Discontinued bisacodyl [Dulcolax (bisacodyl)] 5 mg tablet,delayed release (DR/EC) 5 mg PO ONCE Qty: 4 0RF Rx Instructions: Colonoscopy Bowel Prep- Per Instructions polyethylene glycol 3350 17 gram/dose powder 238 g PO ONCE Qty: 238 0RF Rx Instructions: Colonoscopy Bowel Prep- Per Instructions Discharge Instructions Additional Instructions: DSU Colonoscopy Post-Op Instructions Instructions for Everyone who is given Anesthesia: For your safety, please do the following for the next twenty-four (24) hours: *Do Not operate a motor vehicle (car, truck, motorcycle, etc.) *Do Not drink alcoholic beverages or use any recreational drugs for the first 24 hours or while taking pain medications. The medications in your body may have a reaction that can be dangerous. *Do Not make any important decisions or sign any important papers. Findings: x1 very small polyp Follow up: My office will send a letter in 2 to 3 weeks time stating as to what type was a like to you to repeat the colonoscopy. 1. No lifting over 20 pounds or strenuous activity for the first 24 hours after your procedure. After 24 hours there are no restrictions on your activity but you may feel fatigued for a few days. 2. After you arrive home you may have a light meal and return to your normal diet as you can tolerate it without feeling sick to your stomach. 3. You may have a bloated, gaseous feeling in your belly (abdomen) after a colonoscopy. Passing gas and belching will help. Walking or lying down on your left side with your knees flexed may relieve the discomfort. Call the office at [phone] (Office) or [phone] (Hospital) right away if you notice any of the following: a.Vomiting of blood or ?coffee ground stools?. b.Rectal bleeding 1Tbsp, blood clots or continuous bleeding. c.Severe belly (abdominal) pain. d.A hard distended belly (abdomen) and an inability to pass gas. 4. Please don?t expect to have a normal BM (bowel movement) for 2-3 days after your procedure. 5. If there are questions regarding the findings of your procedure, please contact your doctor 6. If you are unable to contact your doctor with a problem, contact the hospital at [phone]. 7. Continue all your regular medications unless directed otherwise. I understand the above instructions and have no questions. Signature of Patient or Adult Escort Name of Responsible Adult Escort Signature of Nurse Date/Time Activity:: See above the Diet:: See above Discharge Orders Discharge Orders: Discharge Order (Routine); Ordered 07/28/22 Ordered By: Carol Estes DS: Diagnosis Discharge Diagnosis (1) Gastroesophageal reflux disease: (2) Hiatal hernia: (3) History of Parkinson's disease: (4) Adenomatous colon polyp: (5) Constipation by delayed colonic transit: Status: Acute
--- NOTE | 2022-07-27 12:03 | W.COLOREPORT ---
Date of service: 07/28/22 Time of Service: 07:40 Colonoscopy Report Date of procedure: 07/28/22 Pre-op diagnosis general: Serrated adenoma in the cecum 2020 Post-op diagnosis procedure note: other (polyps at 81) Surgeon: Carol Estes Anesthesia Type: General:No Airway Estimated blood loss (mL): 1 Pathology: other Complications: None Disposition: same day Prep: Miralax/Dulcolax Retraction Time: 11 Procedure Description: After informed consent was obtained the patient was taken to the procedure room and placed in a left decubitous position. Monitors were applied and a time out was done. The patients name, date of , procedure, allergies to medications and metal in their body was reviewed. The patient was then sedated. Once sedated and comfortable a rectal exam was done. External exam was normal. Internal exam revealed a normal sphincter tone and no palpable masses. The scope was then introduced and retrofelexed. NO internal hemorrhoids were identified. The scope was then advanced to the cecum w/out difficulty. The TI and appendiceal orifice were identified. The prep was BBPS 2 in all segments for a total of 6.. The scope was then slowly retracted over 11 minutes back into the rectum. 5 mm polyp was removed at 80 cm with a cold biopsy forcep. All specimen is retrieved and no bleeding is noted. There are no diverticula evident. The mucosa is pink and healthy with a normal vascular pattern. The scope was removed and the patient was woken up and taken back to Same day surgery in stable condition. The patient tolerated the procedure well and there were no immediate complications. Follow up: The patient should follow up in 7-10 years unless they develop changes in bowel habits or other new gastrointestinal complaints.
--- NOTE | 2022-07-27 16:37 | W.ANESPRE ---
General Info Date of Service Date Performed: 07/28/22 Height: 5 ft 7 in Weight: 86.75 kg Body Mass Index (BMI): 29.9 Surgical Procedure: Operation Date: 07/28/22 07:35 Proposed Procedure Side Surgeon noman Estes, Meds Allergies and Home Medications Allergies Allergy/AdvReac Type Severity Reaction Status Date / Time bee pollen Allergy Severe ANAPHYLAXIS Verified 07/28/22 06:47 Home Medication Medication Instructions Recorded vitamin E mixed 400 unit capsule 400 unit PO DAILY 12/12/17 carbidopa 25 mg-levodopa 100 mg 2 tab PO QID 06/12/18 tablet gabapentin 300 mg/6 mL (6 mL) oral 300 mg (6 mL) PO BID #240 mL 03/09/20 solution ondansetron HCl 4 mg tablet 4 mg PO Q6H PRN nausea and 05/07/20 (Zofran) vomiting #30 tabs dextromethorphan 20 mg-quinidine 1 cap PO Q12H 10/01/20 10 mg capsule (Nuedexta) omeprazole 40 mg capsule,delayed 40 mg PO BID #60 caps 06/07/21 release trazodone 50 mg tablet 50 mg PO HS 11/21/21 ibuprofen 600 mg tablet 600 mg PO TID PRN pain #60 tabs 11/30/21 melatonin 12 mg disintegrating 12 mg PO HS 11/30/21 tablet albuterol sulfate 90 mcg/actuation 2 puff inhalation Q4H PRN asthma 07/20/22 aerosol inhaler #8.5 grams epinephrine 0.3 mg/0.3 mL 0.3 mg (0.3 mL) IM ONCE #2 ea 07/20/22 injection, auto-injector triamcinolone acetonide 0.1 % 1 applic topical BID PRN rash #15 07/20/22 topical cream grams Current Visit Medications: Current Medications Generic Name Dose Route Start Last Admin Trade Name Freq PRN Reason Stop Dose Admin Ringer's Solution 1,000 mls @ 80 mls/hr 07/28/22 06:00 IV 08/26/22 23:59 [facility] IV Miscellaneous Supplies 1 each 07/28/22 06:00 Iv Access IV 08/26/22 23:59 DIRECTED CUBA Ondansetron HCl 4 mg 07/28/22 11:59 Ondansetron 4 Mg/2 Ml Vial IVP Q4H PRN PRN Nausea / Vomiting Sodium Chloride 0 ml 07/28/22 06:00 Normal Saline Flush 10 Ml Syr IV 08/26/22 23:59 PRN PRN Sodium Chloride 0 ml 07/28/22 06:00 Normal Saline 10 Ml Vial IJ 08/26/22 23:59 DIRECTED PRN Sterile Water 0 ml 07/28/22 06:00 Water,Injection,Sterile 10 Ml Vial IJ 08/26/22 23:59 DIRECTED PRN PFSH Active Problems Active Problems: Problem Status Onset Code H/O arthroscopy of right knee 11/30/21 Z98.890 Microhematuria 11/13/14 R31.29 Hiatal hernia 03/08/04 K44.9 Asthma 12/25/12 J45.909 Parkinson disease G20 Lumbar back pain M54.5 Elevated PSA R97.20 Dysphagia R13.10 Heart burn R12 Nausea R11.0 Constipation by delayed colonic transit K59.01 Tubular adenoma of colon D12.6 Loss of smell R43.0 Complex tear of medial meniscus of right knee S83.231A Medical History Medical History (Updated 07/28/22 @ 06:46 by Zoraida Golden) Actinic keratosis left ear Adenomatous colon polyp 07/19/18, Dr Estes, [facility], tubular and sessile serrated adenoma, repeat 3 years. Asthma Delayed emergence from general anesthesia 2007 [facility] shoulder surgery with MD Hernández Duodenitis (03/08/04) Family history of cardiovascular disease Gastroesophageal reflux disease (03/08/04) Hiatal hernia History of Parkinson's disease History of tennis elbow Hx of gastroesophageal reflux (GERD) Microhematuria Pain of both shoulder joints s/p bilat acromioplasty with chronic pain Right rotator cuff tendonitis Injected 08/15/2018 Right tennis elbow Smell or taste problem decreased smell Traumatic tear of right rotator cuff (03/20/19) Injected: 03/25/2019 S/P repair on 04-21-2019 Medical History Comments:: Deep brain stimulator in situ; pt has controller with him Surgical History Surgical History Arthroscopy, Shoulder 1992; left also right EGD - MAC 2004 Fx ankle 1984 orif done History of colonoscopy Hx of tonsillectomy Repair of umbilical hernia 1993 Rupture of biceps tendon 2008 repair done MD Edgar PARHAM; 11/30/21 pt reports delayed emergence under anesthesia postop S/P deep brain stimulator placement S/P rotator cuff repair 04/21/2019 Status post arthroscopy of shoulder Tobacco Smoking/Tobacco Use Status: Never Passive smoking exposure: Yes Second hand exposure: Yes Alcohol Alcohol Intake: current Alcohol intake frequency: a few times a month Alcohol type: beer Substance Use Substance use: Never Substance use type: does not use Vital Signs and Lab Results Vital Signs Most Recent Vital Signs in EMR: Temp Pulse Resp BP Pulse Ox 36.7 C 86 18 117/77 96 07/28/22 06:38 07/28/22 06:38 07/28/22 06:38 07/28/22 06:38 07/28/22 06:38 Lab Results Blood Type / Crossmatch: No Data to Display Complete Blood Count: No Data to Display Complete Metabolic Panel: No Data to Display Liver Function Panel: No Data to Display Coagulation Panel: No Data to Display Cardiac Panel: No Data to Display Arterial Blood Gas: No Data to Display Venous Blood Gas: No Data to Display Pancreas Panel: No Data to Display Thyroid Panel: No Data to Display Infectious Disease: No Data to Display Blood Cultures: No Data to Display Toxicology Panel: No Data to Display Imaging and Studies Imaging and Studies Study information below may be from another EMR and interpreted by another provider. Please see original notes in EMR for more complete details. EKG Summary: 06/01: sinus. Anesthesia Assessment and Plan Anesthesia History Personal History: No History of Anesthesia Complications Family History: No Family History of Anesthesia Complications Exercise Tolerance Exercise Tolerance: Metabolic Equivalents>4 Cardiac & Pulmonary Exam Cardiac Exam: Normal S1/S2 Heart Sounds Pulmonary Exam: Clear Bilateral Breath Sounds Implantable Cardiac Device Does patient have a Pacemaker or an ICD?: No Airway Exam Known Difficult Airway: No Mallampati Class: 3 Mouth Opening: Normal (> 3cm) Thyromental Distance: Greater than 3 cm Neck Range of Motion: Full ROM Neck Circumference: Normal Teeth Condition: Normal Dentition ASA Classification ASA Score: ASA 2 Emergency Case?: No NPO Status NPO Status: NPO Clears >2 hours, Solids >8 hours Anesthesia Plan Resuscitation Status: Full Code Anesthesia Technique: General Anesthesia Airway Planned: Natural Airway Monitors Used: Standard Monitors Preoperative Comments:: 61 yo male with history of polyp for screening colo. Sig PMHx: Gerd (omeprazole), asthma (albuterol), Parkinson's (carbidopa/levodopa, deep brain stimulator). Previous Anes: - colo, prop, natrual airway, no issues. - RTC, mac 4 grade 1, easy mask. - knee, mac 3 grade 1.
[2022-07-28 06:38] VITALS: BP 117/77; PULSE 86; RESP 18; TEMP 36.7; O2SAT 96
[2022-07-28] MEDS: Lactated Ringers 1,000 ML 80 ML IV (06:55)
[2022-07-28 07:01] VITALS: BMI 29.9
--- NOTE | 2022-07-28 07:55 | BOWEL_PTH ---
PATIENT: Willie Farris LOC: [facility] U#:[id number] AGE/SX: 61/M ROOM: RE07/28/[address]: Carol Estes : 1960 BED: DIS: 07/28/2022 SPEC #: [id number] RECD: 07/28/22 12:26 STATUS: EBENEZER REQ #: [id number] NIKKI: 07/28/22 07:[address]: Carol Estes DEPT: Surgical Specimen RECD BY: [place] Barragan ENTERED: 07/28/22 12:28 SP TYPE: Bowel OTHR DR: Sammy Daniel, SKILL TRAINING PROGRAM COORDINATOR Tissues: 1 - BIOPSY BOWEL Procedures: GROSS AND MICRO LEVEL 4 Comments: [id number]
[2022-07-28 08:14] VITALS: BP 104/70; PULSE 76; RESP 18; TEMP 36.4; O2SAT 95
--- NOTE | 2022-07-28 08:32 | W.ANESPOSTOP ---
Postoperative Evaluation Date, Time and Location Date Performed: 07/28/22 Time Performed: 08:32 Patient Location: Day Surgery Unit Vital Signs Most Recent Imported Vital Signs: Most Recent Vital Signs Temp Pulse Resp BP Pulse Ox 36.4 C L 76 18 104/70 95 07/28/22 08:14 07/28/22 08:14 07/28/22 08:14 07/28/22 08:14 07/28/22 08:14 Pain Score Most Recent Pain Score: Most Recent Pain Score Pain Level 0 07/28/22 08:14 Assessment Mental Status: Awake (Alert & Oriented to Patient Baseline) Airway and Respiratory Function: Patent airway with normal (patient baseline) respiratory exam Cardiovascular Function: Hemodynamically Stable Hydration Status: Adequately Hydrated Nausea & Vomiting: No Nausea or Vomiting Pain: Pt. Denies Any Pain Peripheral Nerve Block: Patient did not receive a nerve block
[2022-07-28 08:44] VITALS: BP 103/80; PULSE 71; RESP 18; TEMP 36.5; O2SAT 95
--- NOTE | 2022-07-28 09:05 | PDOC.DSDIS_ITS ---
Date of service: 07/28/22 Time of Service: 09:06 Discharge Plan Disposition Patient Disposition: Home Condition: Good Discharge Details Reason For Visit: Colonoscopy/colon scope Attending Provider: Carol Estes Primary Care Provider: Sammy Daniel Home Meds and New Rx's Prescriptions: Continued vitamin E mixed 400 unit capsule 400 unit PO DAILY carbidopa-levodopa 25-100 mg tablet 2 tab PO QID Nuedexta 20-10 mg capsule 1 cap PO Q12H Rx Instructions: [place] [facility] [place] -hb trazodone 50 mg tablet 50 mg PO HS gabapentin 300 mg/6 mL (6 mL) solution 300 mg PO BID Qty: 240 12RF ondansetron HCl [Zofran] 4 mg tablet 4 mg PO Q6H PRN (Reason: nausea and vomiting) Qty: 30 0RF albuterol sulfate 90 mcg/actuation HFA aerosol inhaler 2 puff IH Q4H PRN (Reason: asthma) Qty: 8.5 12RF triamcinolone acetonide 0.1 % cream 1 applic TP BID PRN (Reason: rash) Qty: 15 3RF epinephrine 0.3 mg/0.3 mL auto-injector 0.3 mg IM ONCE Qty: 2 2RF Rx Instructions: as a single dose; may repeat once omeprazole 40 mg capsule,delayed release(DR/EC) 40 mg PO BID Qty: 60 0RF melatonin 12 mg Tablet,Disintegrating 12 mg PO HS ibuprofen 600 mg tablet 600 mg PO TID PRN (Reason: pain) Qty: 60 0RF Discontinued bisacodyl [Dulcolax (bisacodyl)] 5 mg tablet,delayed release (DR/EC) 5 mg PO ONCE Qty: 4 0RF Rx Instructions: Colonoscopy Bowel Prep- Per Instructions polyethylene glycol 3350 17 gram/dose powder 238 g PO ONCE Qty: 238 0RF Rx Instructions: Colonoscopy Bowel Prep- Per Instructions Discharge Instructions Additional Instructions: DSU Colonoscopy Post- Op Instructions Instructions for Everyone who is given Anesthesia: For your safety, please do the following for the next twenty-four (24) hours: *Do Not operate a motor vehicle (car, truck, motorcycle, etc.) *Do Not drink alcoholic beverages or use any recreational drugs for the first 24 hours or while taking pain medications. The medications in your body may have a reaction that can be dangerous. *Do Not make any important decisions or sign any important papers. Findings: x1 very small polyp No diverticula Follow up: My office will send a letter in 2 to 3 weeks time stating as to what type was a like to you to repeat the colonoscopy, most likely 5-7 yrs. 1. No lifting over 20 pounds or strenuous activity for the first 24 hours after your procedure. After 24 hours there are no restrictions on your activity but you may feel fatigued for a few days. 2. After you arrive home you may have a light meal and return to your normal diet as you can tolerate it without feeling sick to your stomach. 3. You may have a bloated, gaseous feeling in your belly (abdomen) after a colonoscopy. Passing gas and belching will help. Walking or lying down on your left side with your knees flexed may relieve the discomfort. Call the office at [phone] (Office) or [phone] (Hospital) right away if you notice any of the following: a.Vomiting of blood or ?coffee ground stools?. b.Rectal bleeding 1Tbsp, blood clots or continuous bleeding. c.Severe belly (abdominal) pain. d.A hard distended belly (abdomen) and an inability to pass gas. 4. Please don?t expect to have a normal BM (bowel movement) for 2-3 days after your procedure. 5. If there are questions regarding the findings of your procedure, please contact your doctor 6. If you are unable to contact your doctor with a problem, contact the hospital at [phone]. 7. Continue all your regular medications unless directed otherwise. I understand the above instructions and have no questions. Signature of Patient or Adult Escort Name of Responsible Adult Escort Signature of Nurse Date/Time Stand Alone Forms: Anesthesia Discharge Inst., Chasidy Muñoz (DSU) Activity:: See above the Diet:: See above Discharge Orders Discharge Orders: Discharge Order (Routine); Ordered 07/28/22 Ordered By: Carol Estes DS: Diagnosis Discharge Diagnosis (1) Gastroesophageal reflux disease: (2) Hiatal hernia: (3) History of Parkinson's disease: (4) Adenomatous colon polyp: (5) Constipation by delayed colonic transit: Status: Acute
== END 2022-07-28 09:10 | disposition home or self-care (01) ==
PROVIDERS: PCP Nurse Practitioner Family; Visit Provider Surgery
PROC: 0DJD8ZZ Inspection of Lower Intestinal Tract, Via Natural or Artificial Opening Endoscopic (ICD-10-PCS; CPT 45378; principal; 2022-07-28 07:30)
DX: Z12.11 Encounter for screening for malignant neoplasm of colon (principal); Z86.010 Personal history of colon polyps; K63.5 Polyp of colon; K63.89 Other specified diseases of intestine
CPT/HCPCS: 45380; 88305

== ENCOUNTER 2022-08-28 02:30 | Outpatient (CLI) | payer BC, SELFPAY ==
[2022-08-28 13:47] LABS: Calculated LDL 135 mg/dL (<100); Cholesterol 191 mg/dL (<200); HDL Cholesterol 48 mg/dL (40-60); Triglyceride 43 mg/dL (<150)
[2022-08-29 11:42] LABS: Hemoglobin A1C 5.5 % (<5.7)
== END 2022-08-28 02:31 | disposition home or self-care (01) ==
LOC: LOS 02:30
PROVIDERS: PCP Nurse Practitioner Family; Visit Provider Nurse Practitioner Family
DX: Z13.220 Encounter for screening for lipoid disorders (principal); Z13.1 Encounter for screening for diabetes mellitus
CPT/HCPCS: 36415; 80061; 83036

== ENCOUNTER 2024-08-01 10:55 | Outpatient (CLI) | payer MEDICARE, SELFPAY ==
[2024-08-01 12:52] LABS: Anion Gap 5.6 mmol/L (3-11); BUN 19 mg/dL (7-18); CO2 31.4 mmol/L (21.0-32.0); CREATININE 0.9 mg/dL (0.70-1.30); Calcium 9.2 mg/dL (8.5-10.1); Calculated LDL 127 mg/dL (<100); Chloride 106 mmol/L (98-107); Cholesterol 206 mg/dL (<200); Estimated GFR 96.57 (mL/min/1.73m2); Glucose 90 mg/dL (74-106); HDL Cholesterol 47 mg/dL (>or=40); Potassium 4.1 mmol/L (3.5-5.1); Sodium 143 mmol/L (136-145); Triglyceride 162 mg/dL (<150)
[2024-08-01 22:36] LABS: PSA, Screening 3.7 ng/mL (<=4.5)
== END 2024-08-01 10:56 | disposition home or self-care (01) ==
LOC: LOS 10:55
PROVIDERS: PCP Nurse Practitioner Family; Visit Provider Nurse Practitioner Family
DX: Z13.6 Encounter for screening for cardiovascular disorders (principal); Z13.1 Encounter for screening for diabetes mellitus; Z12.5 Encounter for screening for malignant neoplasm of prostate
CPT/HCPCS: 36415; 80048; 80061; 84153